=== PATIENT | female | born 1940 | race Caucasian/White ===

== ENCOUNTER 2016-08-01 11:58 | Emergency (ER) | payer MEDICARE, OTHER ==
[~2016-08-01 11:58] MED LIST: ALBUTEROL0.63 MG/3 NEB; ALUM-MAG HYDRO360 ML PO; AMARYL2 MG PO; AMBIEN10 M1 PO; AMBIEN5 MG PO; AMINOPHYLLIN200 MG PO; B12,B-12,B 12500 MC1 PO; BREO ELLIPTA 11 EACH IH; BUMETANIDE1 MG PO; BUSPIRONE HCL10 MG PO; BUSPIRONE10 MG PO; CARDIZEM120 MG PO; CELEBREX100 MG PO; CIPRO500 MG PO; CLONAZEPAM0.5 M1 PO; CLONAZEPAM0.5 M2 PO; CLONAZEPAM0.5 MG PO; COLACE100 MG PO; CYCLOBENZAPRINE5 M3 PO; DIABETIC T100 MG/51 PO; DOXYCYCLINE HY100 M5 PO; DOXYCYCLINE100 M3 PO; DULCOLAX10 M1 R; DULCOLAX10 MG R; DULE1ARO INH; DULER200 INH; Diabeta,Micron2.5 MG PO; FLEXERIL5 MG PO; GOOD NEIGHBOR150 M1 PO; GOOD NEIGHBOR650 MG PO; HUMALOG100 U/ML SC; HYDROCODONE BIT1 T11 PO; KEPPRA500 MG PO; KLONOPIN0.5 MG PO; KLOR-CON M2020 ME1 PO; KLOR-CON M2020 MEQ PO; LANTUS100 U/ML SC; LEXAPRO10 MG PO; LIPITOR20 MG PO; LIPITOR40 MG PO; LISINOPRIL2.5 MG PO; METFORMIN HYD1000 MG PO; METFORMIN1000 MG PO; MILK OF MA400 MG/5 M PO; MOBIC15 MG PO; MOM30 ML PO; NORCO 325 MG-51 TAB PO; NOVOLOG100 U/ML SC; OMEPRAZOLE MAGN20 MG PO; PERCOCET 325 MG1 TA5 PO; PROAIR HFA0.09 MG/AC INH; Percocet 325 MG1 TAB PO; REQUIP2 M2 PO; ROPINIROLE HY0.25 MG PO; ULTRAM50 MG PO; VIBRAMYCIN100 MG PO; VICO10300 PO; VITAMIN B12-FO1 EACH PO; VITAMIN D1000 IU PO; XARE15TA PO; XARELTO20 M1 PO; ZESTRIL2.5 MG PO; ZOLPIDEM TARTRAT5 MG PO; Zaroxolyn,Diul2.5 MG PO; Zestril,Prinivi40 MG PO; [UNRECOGNIZED DRUG - OTHER] T
[2016-08-01 12:24] LABS: BASO % 0.3 % (0.0-1.0); EOS % 0.2 % (1.0-4.0); HEMOGLOBIN 11.1 g/dl (12.0-16.0); IG # 0.1 10*3/uL (0.0-0.1); LYMPH # 1.2 10*3/uL (1.3-4.4); LYMPH % 19.2 % (27.0-41.0); MEAN CELL VOLUME 90.4 fl (81.0-99.0); MEAN CORPUSCULAR HGB 28.7 pg (27.0-31.0); MEAN CORPUSCULAR HGB CONC 31.7 g/dl (33.0-37.0); MEAN PLATELET VOLUME 9.2 fl (9.6-12.3); MONO # 0.3 10*3/uL (0.1-1.0); MONO % 4.6 % (3.0-9.0); NEUT # 4.5 10*3/uL (2.3-7.9); NEUT % 73.6 % (47.0-73.0); NUCLEATED RED BLOOD CELL 0.5 % (0.0-0.0); PLATELET COUNT AUTOMATED 274 10*3/uL (130-400); RED BLOOD COUNT 3.87 10*6/uL (4.10-5.10); RED CELL DISTRI WIDTH 18.9 % (0-14.5); WHITE BLOOD COUNT 6.1 10*3/uL (4.8-10.8)
[2016-08-01 12:33] LABS: INTERNATIONAL NORM RATIO 1.2 (2.0-3.5); PROTHROMBIN TIME 12.5 SECONDS (9.0-12.4)
[2016-08-01 12:41] LABS: ALBUMIN 2.7 gm/dl (3.1-4.5); BUN 19 mg/dl (7-24); C-REACTIVE PROTEIN 1.28 MG/DL (0-0.3); CARBON DIOXIDE 28 mmol/L (21-32); CHLORIDE 99 mmol/L (98-107); EST GLOM FILT AFRICAN AMERICAN > 60 ml/min; GLUCOSE 177 mg/dL (65-99); MAGNESIUM 1.7 mg/dL (1.5-2.1); POTASSIUM 4.1 mmol/L (3.5-5.1); SGOT/AST 15 IU/L (3-35); SGPT/ALT 39 U/L (12-78); SODIUM 140 mmol/L (136-145)
[2016-08-01 12:43] LABS: ALKALINE PHOSPHATASE 58 U/L (45-117); BILIRUBIN, TOTAL 0.6 mg/dl (0.2-1.0); CKMB 1.8 ng/ml (0.5-3.6); CPK 41 U/L (26-192); TOTAL PROTEIN 6.4 gm/dL (6.4-8.2)
[2016-08-01 12:44] LABS: TROPONIN I < 0.015 ng/ml (<0.045)
[2016-08-01 14:21] LABS: LA>2 REFLEX 2 HR DRAW NOW
[2016-08-01 14:38] LABS: LA>2 RFLX FOLLOW UP AT 2 HRS 3.4 mmol/L (0.4-2.0)
[2016-08-01] MEDS ORDERED: DELTASONE20 M1 PO (15:07)
[2016-08-01] MEDS ORDERED: PREDNISONE10 MG PO (15:12)
[2016-08-01] MEDS ORDERED: LEVEMIR10 ML SC (15:13)
[2016-08-01] MEDS ORDERED: PANTOPRAZOLE SO40 MG PO (15:13)
[2016-08-01] MEDS ORDERED: JANUVIA100 MG PO (15:15)
[2016-08-01] MEDS ORDERED: XARELTO15 M1 PO (15:15)
[2016-08-01] MEDS ORDERED: PRAVACHOL80 M1 GT (15:15)
[2016-08-01] MEDS ORDERED: BUSPIRONE HCL10 MG PO (15:16)
[2016-08-01] MEDS ORDERED: TOPROL XL25 MG PO (15:16)
[2016-08-01] MEDS ORDERED: COLACE100 MG PO (15:17)
[2016-08-01] MEDS ORDERED: CARDIZEM120 MG PO (15:17)
[2016-08-01] MEDS ORDERED: LASIX40 MG PO (15:20)
[2016-08-01] MEDS ORDERED: METFORMIN1000 MG PO (15:20)
[2016-08-01] MEDS ORDERED: KLONOPIN0.5 MG PO (15:20)
[2016-08-01] MEDS ORDERED: PULMICORT RESP0.5 MG INH (15:28)
[2016-08-01] MEDS ORDERED: DUONEB 3 MG/3 ML3 M1 INH (15:29)
[2016-08-01] MEDS ORDERED: KLOR-CON M2020 ME1 PO (15:29)
[2016-08-01] MEDS ORDERED: TYLENOL325 M1 PO (15:30)
[2016-08-01] MEDS ORDERED: HYDROCODONE BIT1 T11 PO (15:30)
[2016-08-01 16:28] LABS: LA>2 REFLEX 4 HR DRAW NOW
[2016-08-01] MEDS ORDERED: PEPCID20 MG PO (17:25)
[2016-08-02] MEDS ORDERED: NITROSTAT0.4 MG SL (15:01)
[2016-08-02] MEDS ORDERED: HUMALOG100 U/ML SC (15:03)
== END 2016-08-01 17:28 | disposition home or self-care (01) ==
LOC: ED 11:58
PROVIDERS: Emergency Medicine
DX: K29.00 Acute gastritis without bleeding (principal); I48.91 Unspecified atrial fibrillation; J96.10 Chronic respiratory failure, unspecified whether with hypoxia or hypercapnia; J44.9 Chronic obstructive pulmonary disease, unspecified; I50.9 Heart failure, unspecified; K21.9 Gastro-esophageal reflux disease without esophagitis; E11.65 Type 2 diabetes mellitus with hyperglycemia; G25.81 Restless legs syndrome; G47.00 Insomnia, unspecified; E66.01 Morbid (severe) obesity due to excess calories; Z68.43 Body mass index [BMI] 50.0-59.9, adult; Z99.81 Dependence on supplemental oxygen; Z79.899 Other long term (current) drug therapy; Z86.718 Personal history of other venous thrombosis and embolism; Z79.4 Long term (current) use of insulin

== ENCOUNTER 2016-08-02 09:53 | Inpatient (IN) | payer MEDICARE, OTHER ==
[~2016-08-02] VITALS: Ht 152.4 cm; Wt 99.0 kg
--- NOTE | ~2016-08-02 | DS ---
[place], [place] DISCHARGE SUMMARY NAME: JOSE RAFAEL MARK [facility] #: [id number] UNIT #: [id number] ROOM: 531 DOCTOR: HUONG MACHADO MD BIRTHDATE: [birth year] DOS: 08/05/2016 DISCHARGE DIAGNOSES: 1. The patient refusing further testing or treatment and her daughter, the power of insurance defense attorneyAna is insisting on patient should be sent back to [facility] for treatment. 2. Chronic atrial fibrillation with recurrent tachycardia. 3. Acute over chronic respiratory failure with chronic diastolic type congestive heart failure and hypoxemia. 4. Exacerbation of chronic obstructive pulmonary disease, improved with treatment. 5. Type 2 diabetes mellitus, uncontrolled. 6. Benign essential hypertension with controlled blood pressures. 7. Generalized anxiety disorder, previous history of deep vein thrombosis involving the left leg and pulmonary embolism. 8. Adult advance failure to thrive and poor long-term prognosis. The patient remains bedbound. 9. Major depression, recurrent. 10. Chronic primary insomnia. 11. Chronic respiratory failure and oxygen dependence. The patient overall in poor health, morbidly obese, completely disabled and bedridden stays at [facility], presented to [facility] in acute respiratory failure with episode of hypoxemia. The patient's respiratory failure is chronic and multifactorial including obesity, generalized weakness and weak respiratory muscles along with underlying chronic obstructive pulmonary disease and chronic congestive heart failure. The patient was evaluated by product development carpenter as well as Dr. Clements, the extracorporeal circulation specialist and apparently now she has started refusing testing ordered by Dr. Clements including CT of the chest and further blood work. The patient's daughter who was the power of insurance defense attorney Ana has been calling nursing staff at the hospital to get a release back to the [facility] on SULY basis. The patient appears to be stable, but in generally very weak and generally poor health condition. I am recommending a DNR comfort care code status for her, but she remains a DNR arrest code status which does not appear to be appropriate for her. The patient and her daughter wanted her to be kept comfortable only. 12. Chronic atrial fibrillation with recurrent tachycardia, which is controlled with Cardizem. The dose of Cardizem cannot be increased because she develops hypotension off and on. 13. Type 2 diabetes mellitus, uncontrolled with blood sugars ranging between 200-300 range. I did adjust her insulin and blood sugars appeared to be improved during her stay at the hospital. DIAGNOSES: 1. Benign essential hypertension with controlled blood pressures. 2. Generalized anxiety disorder, controlled with BuSpar and lorazepam. 3. Chronic congestive heart failure with diastolic dysfunction, compensated. The patient is chronically on oxygen for chronic hypoxemia. 4. Left buttock stage 2 decubitus treated with TheraHoney. 5. Chronic constipation, controlled with Colace. [place], [place] DISCHARGE SUMMARY NAME: JOSE RAFAEL MARK [facility] #: [id number] UNIT #: [id number] ROOM: 531 DOCTOR: JEANNETTE DELGADO,HUONG Calderon BIRTHDATE: [birth year] LABORATORY DATA: Normal serum electrolytes, hemoglobin of 10. Otherwise, normal CBC and normal platelets. Chest x-ray results as mentioned above. DISCHARGE MANAGEMENT: Levemir insulin 25 units subq daily. No concentrated sweet diet. Furosemide 40 mg b.i.d. Check basic metabolic profile in one week. Tradjenta 5 mg daily, Xarelto 15 mg daily, metoprolol 25 mg b.i.d., metformin 1000 mg b.i.d., Protonix 40 mg a day, simvastatin 80 mg a day, Colace 200 mg at bedtime, diltiazem 120 mg b.i.d., sublingual nitroglycerin 0.4 mg every 5 minutes x 3 p.r.n. for chest pains, potassium chloride 20 mEq t.i.d., DuoNeb every 4 hours during the day, clonazepam 0.5 mg b.i.d. and buspirone 10 mg b.i.d. I will get a clearance from Dr. Clements in the Cardiology before discharging her back to the residential. HUONG MACHADO MD CM:DISCHARG [id number] HUONG MACHADO MD 08/05/16 2006 interface
--- NOTE | ~2016-08-02 | CON ---
[place], [place] REPORT OF CONSULTATION NAME: JOSE RAFAEL MARK [facility] #: [id number] UNIT #: [id number] ROOM: 531 DOCTOR: ALEIDA PEARCE MD BIRTHDATE: [birth year] DOS: 08/03/2016 PULMONARY CONSULTATION EVALUATION AND MANAGEMENT CONSULTATION REQUESTED BY: Hospitalist services. REASON FOR CONSULTATION: Assess the patient for symptoms of ongoing acute exacerbation of chronic obstructive pulmonary disease and others. HISTORY OF PRESENT ILLNESS: A 76 years old white female patient presented to the Emergency Room and hospitalized the patient on 08/02/2016. The patient reported symptoms of having increased shortness of breath for the patient which has been occurring at home for the patient with significant change in mental status intermittently. The patient was also noted with oxygen desaturation patient with the 70s-80s on 4 L nasal cannula oxygen supplementation. The patient brought to the hospital for the patient for further assessment. She has been assessed in the Emergency Room and hospitalized for further medical management of the current problem for the patient for the acute exacerbation of COPD and hypoxia and respiratory failure. The patient has been noted with reduction in symptoms of shortness breath for this morning. The patient stated that she has been noted with coughing, but there was no sputum expectoration. She does have symptoms of mild wheezing as well. Denies symptoms of chest pain or any abdominal pain or hemoptysis. The patient noted somewhat poor historian, unable to give me all the history accurately. Remaining history has been collected for this patient per review of the documentation of the physician records, Emergency Room notes and the nursing assessment. REVIEW OF SYSTEMS: Of the patient limited. CONSTITUTIONAL: The patient does complain of fatigue and tiredness. Denies symptoms of fever or chills. EYES: Denies any burning, redness, or tenderness. EARS, NOSE, THROAT SYMPTOMS: No sore throat, hoarseness, or otalgia, postnasal drainage. CARDIOVASCULAR SYSTEM: Denies anginal pain, edema or pain of the lower extremities. GASTROINTESTINAL SYMPTOMS: Denies dysphagia, nausea, vomiting, diarrhea, abdominal pain, hematemesis, melena, or hematochezia. SKIN: Denies any lesions or rashes. CENTRAL NERVOUS SYSTEM: Generalized weakness and fatigue was noted. The patient stated that she has been ambulating at home. Currently, noted with overall fatigue and weakness. SKIN: Denies lesions or rashes. Remaining systems limited review of the patient, they were noted all negative. PAST MEDICAL HISTORY: The patient was known with history of: 1. Centrilobular emphysema. 2. Bronchial asthma, longstanding. 3. History of type 2 diabetes mellitus. 4. Generalized anxiety disorder and depression. [place], [place] REPORT OF CONSULTATION NAME: JOSE RAFAEL MARK UNIT #: [id number] ROOM: 531 DOCTOR: LINDA ROMANO MD,[facility] BIRTHDATE: [birth year] 5. Osteoarthritis. 6. Hypercholesterolemia. 7. Gastroesophageal reflux. 8. Atrial fibrillation. 9. Past history of subdural hematoma. 10. Obstructive sleep apnea disorder, on CPAP. 11. Congestive heart failure for this patient was also known for this patient from the past with diastolic dysfunction, most likely. SOCIAL HISTORY: The patient stated that she lives at home. Denies any tobacco use. Denies any history of alcohol or any illicit drug use. The patient stated that she is not and does not have any children. PAST SURGICAL HISTORY: For the patient was reported as no described surgeries. FAMILY HISTORY: Unknown by the patient. MEDICATIONS: The medications, which has been listed in medication reconciliation by the nursing staff for the patient upon admission on 08/02/2016, patient was reported as use of pravastatin, Pulmicort Respules, DuoNeb, Tylenol, BuSpar, Klonopin, Cardizem, Colace, Lasix, Vicodin, metformin, metoprolol tartrate, Protonix, potassium chloride, Levemir insulin, Januvia, Xarelto, prednisone 10 mg daily, sliding scale insulin, and the nitroglycerin sublingual p.r.n. DRUG ALLERGIES: Noted for no known drug allergies. PHYSICAL EXAMINATION: GENERAL: This is a 76 years old female who has been noted currently awake and alert without any distress. Height of 5 feet, weight of 101 kg, BMI of 43.6. VITAL SIGNS: For the patient which has been recorded showed the temperature of the patient recorded as normal, respiratory rate 20-24, heart rate of 88-104, blood pressure 108/77-116/60. The pulse oxygen saturation for the patient recorded this morning on 4 liters nasal cannula 96% saturation. Intake was recorded at 240 mL, output were not documented since admission. HEENT: Examination shows chronic obesity. Head was atraumatic. Eyes: Nonicterus. NECK: Supple. Neck was short and obese. Decreased posterior pharyngeal space, high tongue ____ crowding, soft tissue structures. CARDIOVASCULAR SYSTEM: S1, S2 is audible. LUNGS: The patient was noted with moderate decreased breath sounds noted in the lungs bilaterally. Occasional crackles and wheezing were present. ABDOMEN: Soft, obese, nontender. Bowel sounds present. CENTRAL NERVOUS SYSTEM: Of the patient at this time noted generalized weakness however ____ following vocal commands appropriately at this time with the current medical status. SKIN: Visible skin does not show any lesions or rashes. MUSCULOSKELETAL SYMPTOMS: Does not show any acute deformities. LABORATORY DATA: CBC of the patient that was done for this patient 08/01/2016 [place], [place] REPORT OF CONSULTATION NAME: JOSE RAFAEL MARK UNIT #: [id number] ROOM: 531 DOCTOR: LINDA ROMANO MD,[facility] BIRTHDATE: [birth year] for the patient shows a WBC count was normal, hemoglobin 11.1, hematocrit 35.0, platelet count 274,000. Lactic acid of the patient was noted at 3.8 at that time. Lactic acid of the patient has been noted elevated, the lowest lactic acid noted of the patient after 24 hours 2.4. The CBC of the patient that was done on 08/02/2016 for the patient, WBC count 7.5, hemoglobin 11.3, hematocrit 36.4, platelet count was normal. PT/PTT of the patient 08/02/2016 was normal. CMP of the patient on 08/02/2016 for patient, glucose 231, BUN 20, creatinine 1.03, albumin 2.7. BMP of the patient this morning, glucose 335, BUN 29, creatinine was normal. Carbon dioxide 33, chloride of 97. Blood culture from the 2nd of this month shows no bacterial growth. Chest x-ray of the patient, which has been done for this patient were reviewed for this patient. The first chest x-ray of the patient was done for this patient on 08/01/2016 for the patient shows significant cardiomegaly for this patient was noted, difficult to assess the underlying lung ____ with currently limited chest. Chest x-ray repeated again of the patient yesterday shows similar finding with pulmonary venous congestion of the patient was noted at this time with partial improvement in the aeration noted in the left lower lung. IMPRESSION: 1. The patient who has been noted with recurrent acute respiratory failure whether there is hypercapnia or not at this time was unknown. 2. Left basilar area of atelectasis, rule out acute pneumonia as well. 3. Cardiomegaly. 4. Superimposed congestive heart failure would be considered. 5. History of chronic hypoxic respiratory failure by history as well. 6. Type 2 diabetes mellitus, history of atrial fibrillation and multiple other medical illnesses. 7. History of obstructive sleep apnea disorder as well. PLAN OF TREATMENT: Order the arterial blood gases for the patient assessment of the underlying respiratory status. The patient has been ordered empirical use of the BiPAP for the patient last night with the setting of 14/10 for this patient to be used. The adjustment of the setting could be done based on the available culture results. The PA and lateral chest x-ray for the patient will be needed for the patient to more accurately assess the left lower lobe for this patient as well with the lateral view. Sputum for Gram stain, culture of the patient could be done if the patient able to expectorate any sputum. Current empirical use of the antibiotics for the patient to be discontinued if the culture results will be noted negative since the diagnosis of pneumonia is considered with current assessment very low. Mostly atelectasis would be considered. Other supportive plan of management as well. Usual treatment. Bronchodilators administration. The patient is already getting Xarelto for the chronic anticoagulation that would also help in the DVT prophylaxis, there will be no need of steroids. Diuretic for this patient therapy will be continued for this patient with monitoring of the BUN and creatinine for this patient. Further treatment changes will be done based on the progression of the illness. Thanks for allowing me to participate in the care of this patient. [place], [place] REPORT OF CONSULTATION [facility]: [id number] UNIT #: [id number] ROOM: 531 DOCTOR: ALEIDA PEARCE MD BIRTHDATE: [birth year] ALEIDA MCKEON MD CM:CONSTR:REPORT OF CONSULTATION 1248 08/04/16 0133 interface
--- NOTE | ~2016-08-02 | WRIGHTHP ---
[place], [place] PATIENT HISTORY AND PHYSICAL EXAM NAME: JOSE RAFAEL MARK [facility] #: [id number] UNIT #: [id number] ROOM: 531 DOCTOR: HUONG MACHADO MD BIRTHDATE: [birth year] DOS: 08/03/2016 HISTORY OF PRESENT ILLNESS: The patient is a 76-year-old female with a past medical history of, 1. Chronic atrial fibrillation. 2. History of pulmonary embolism and DVT involving left lower extremity. 3. Morbid obesity. 4. Adult failure to thrive and disability. The patient remains in bed at home. 5. History of benign essential hypertension. 6. GERD and esophagitis. 7. Type 2 diabetes mellitus. 8. COPD. 9. Diastolic type CHF, chronic. 10. Major depression, recurrent. 11. Chronic primary insomnia. 12. Chronic respiratory failure with oxygen dependence. The patient presented to the Emergency Department at [facility] with increased shortness of breath and she was found to be in acute respiratory failure with hypoxemia. The patient was having difficulty with breathing and had decreased consciousness at home. The patient's pulse ox had dropped into 70s on 4 L of oxygen by nasal cannula she was started on in the Emergency Department. The patient was given treatment and then admitted for further management. After admission, the patient says she is feeling much better. She is not short of breath anymore. The patient says she lives at home with help of friends and generally stays in the bed, no complaints. No chest pain. No fainting episodes. No other GI or urinary symptoms. No known drug allergies. FAMILY HISTORY: Noncontributory. HOME MEDICATIONS: Insulin, Xarelto, metoprolol, metformin, Protonix, Lasix, simvastatin, Colace, diltiazem, clonazepam, DuoNebs, buspirone, Vicodin. ALLERGIES: No known drug allergies. PHYSICAL EXAMINATION: GENERAL: The patient is alert and oriented x 3, morbidly obese with generalized disability, bedridden, in no visible distress, advanced disability and generalized weakness. VITAL SIGNS: Blood pressure 145/62, heart rate 59 beats per minute, breathing 18 per minute, temperature 98 degrees Fahrenheit. HEENT AND NECK: Extraocular movements are intact. Sclerae are anicteric. Oral mucosa is moist and clean. No obvious facial weakness. Neck is supple without any lymphadenopathy. No thyromegaly. No JVD. No carotid arterial bruits. LUNGS: Clear to auscultation. No wheezing. No rhonchi. CARDIOVASCULAR SYSTEM: Heart rate is regular in rate and rhythm. S1 and S2 normally audible. No significant murmur or any other abnormal cardiac sounds. ABDOMEN: Soft, nontender. No obvious organomegaly. Bowel sounds are present. No obvious herniation. [place], [place] PATIENT HISTORY AND PHYSICAL EXAM NAME: JOSE RAFAEL MARK [facility] #: [id number] UNIT #: [id number] ROOM: 531 DOCTOR: JEANNETTE DELGADO,HUONG Calderon BIRTHDATE: [birth year] EXTREMITIES: The patient has a stage 2 decubitus on her sacral area. CENTRAL NERVOUS SYSTEM: Alert and oriented x 3. Cranial nerves II-XII are intact. Speech is normal. The patient is able to move all extremities. Normal muscle strength. Deep tendon reflexes are equal on both sides. Plantars were downgoing. LABORATORY DATA: Blood cultures negative. Normal serum electrolytes. Hemoglobin 10. ProBNP of 524, hemoglobin 11.3. IMPRESSION: 1. Acute over chronic respiratory failure with exacerbation of chronic obstructive pulmonary disease and hypoxemia, improved with oxygen and nebulizer treatments. I also keep her on incentive spirometry and follow her closely and keep her on DuoNeb and continue her home medications. 2. Mixed hyperlipidemia. The patient continued on simvastatin. 3. Type 2 diabetes mellitus. We will keep no concentrated sweet diet and treat her with insulin and metformin. 4. History of deep venous thrombosis and pulmonary embolism treated with Xarelto. 5. Chronic constipation, treated and controlled with Colace. 6. Benign essential hypertension with controlled blood pressures. The patient continued on diltiazem. 7. Generalized anxiety disorder. The patient on buspirone. 8. Generalized weakness and failure to thrive. The patient has a stage 2 decubitus over the sacrum, which will be treated appropriately. HUONG MACHADO MD CM:HISPHYS:PATIENT HISTORY AND PHYSICAL EXAMINATION 24 22 HUONG MACHADO MD 08/03/161922 interface
--- NOTE | ~2016-08-02 | PR ---
[place], [place] PROGRESS NOTE NAME: JOSE RAFAEL MARK UNIT #: [id number] ROOM: 531 DOCTOR: ALEIDA PEARCE MD BIRTHDATE: [birth year] DOS: 08/04/2016 SUBJECTIVE: She has been noted much better for this patient at this time. The arterial blood gas was done yesterday. She was started on the BiPAP, which has been tolerated. The patient has been ordered arterial blood gases for this patient that was refused by the patient as well as the chest x-ray was ordered for this patient that was refused by the patient as well. OBJECTIVE: VITAL SIGNS: The patient which has been recorded showed the temperature noted normal, respiratory rate of 18, heart rate of 102, blood pressure 110/80. Pulse oxygen saturation of the patient on 4 liters nasal cannula 96% saturation recorded. HEENT: Shows chronic obesity. NECK: Supple. CARDIOVASCULAR SYSTEM: S1, S2 is audible. LUNGS: The patient was noted with mild decreased breath sounds noted in the lungs bilaterally. ABDOMEN: Soft, obese. EXTREMITIES: Shows chronic obesity as well. LABORATORY DATA: Blood culture, which was taken on the 2nd of this month, shows no bacterial growth. IMPRESSION: 1. The patient who has been currently noted with acute hypoxic respiratory failure with possibility to hypercarbia cannot be excluded. 2. Left lower lobe atelectasis, rule out acute pneumonia. 3. Cardiomegaly. 4. Superimposed congestive heart failure, most likely diastolic dysfunction as well. 5. History of type 2 diabetes mellitus. 6. Chronic hypoxic respiratory failure. 7. Obstructive sleep apnea disorder. PLAN OF TREATMENT: Continue use of the BiPAP for this patient as recommended. The patient is agreeable at this time for the chest x-ray the patient that has been ordered the patient to be done today. In the meantime, continue current plan of management and monitor the lab patient closely. Other supportive therapy, plan of management, other care. [place], [place] PROGRESS NOTE NAME: JOSE RAFAEL MARK UNIT #: [id number] ROOM: 531 DOCTOR: ALEIDA PEARCE MD BIRTHDATE: [birth year] ALEIDA MCKEON MD CM:PNDIVYA [id number] ALEIDA ROMANO MD 08/05/16 0657 interface
--- NOTE | ~2016-08-02 | PR ---
[place], [place] PROGRESS NOTE NAME: JOSE RAFAEL MARK [facility] #: [id number] UNIT #: [id number] ROOM: 531 DOCTOR: HUONG MACHADO MD BIRTHDATE: [birth year] DOS: 08/04/2016 SUBJECTIVE: The patient's breathing is improving. She wants to sit up in the chair today. OBJECTIVE: VITAL SIGNS: Blood pressure 110/80, heart rate of 102 beats per minute, breathing 18 times per minute, afebrile. GENERAL APPEARANCE: Generalized weakness, disability and morbid obesity. HEENT AND NECK: Exam within normal limits. CARDIOVASCULAR SYSTEM: Heart rate is regular in rate and rhythm. S1 and S2 normally audible. LUNGS: Slightly decreased breath sounds on lung auscultation. ABDOMEN: Soft, nontender. No obvious organomegaly. Bowel sounds are present. EXTREMITIES: Without significant cyanosis or edema. IMPRESSION: 1. The patient with acute over chronic respiratory failure. 2. The patient's chronic obstructive pulmonary disease continues to improve with treatment. 3. Morbid obesity, advanced disability. We are taking bedsore precautions, turning her every 2 hours, using an air mattress and also taking fall precautions. The patient working with physical therapy. 4. Type 2 diabetes mellitus. The patient is on a no concentrated sweet diet and her blood sugars are elevated, ranging between 200-300. I will increase her Levemir insulin and monitor her sugars 4 times a day. 5. Chronic atrial fibrillation with reasonably controlled heart rates. 6. Benign essential hypertension with controlled blood pressures with metoprolol and diltiazem. 7. Generalized anxiety disorder, controlled with BuSpar and p.r.n. lorazepam. 8. Diastolic type congestive heart failure which is chronic and compensated. HUONG MACHADO MD CM:PNTRANS [id number] HUONG MACHADO MD 08/04/162108 interface
--- NOTE | ~2016-08-02 | PR ---
[place], [place] PROGRESS NOTE NAME: JOSE RAFAEL [facility] #: [id number] UNIT #: [id number] ROOM: 531 DOCTOR: LINDA ROMANO MD,ALEIDA BIRTHDATE: [birth year] DOS: 08/05/2016 PULMONARY PROGRESS NOTE SUBJECTIVE: The patient continued to be treated with the BiPAP with the patient on oxygen supplementation and others refusing certain treatment for this patient and assessment. The patient has been ordered a chest x-ray, PA and lateral view. She refused to get it done. The portable chest x-ray was performed. She denies symptoms of abdominal pain. She does have mild coughing without any sputum expectoration. OBJECTIVE: VITAL SIGNS: Shows temperature 99.3 degrees Fahrenheit, respiratory rate 18, heart rate 105, blood pressure 124/60-101/59. Intake is 980, the outputs were not documented. Pulse oxygen saturation on 3 liters canula 93% saturation recorded. HEENT: Examination shows head was atraumatic. Eyes nonicterus. NECK: Supple. CARDIOVASCULAR SYSTEM: S1, S2 audible. LUNGS: The patient was noted without any crackles, rhonchi, or wheezing. Decreased breath sounds are noted in the lower portion of the lungs bilaterally. ABDOMEN: Soft, nontender. EXTREMITIES: Shows obesity. LABORATORY DATA AND DIAGNOSTIC STUDIES: The patient's chest x-ray portable today shows retrocardiac infiltration, atelectasis of pleural fluid, the patient with combination the right lung was noted as clear. ____ was somewhat rotated to the left as well. IMPRESSION: 1. The patient with ongoing acute hypoxic respiratory failure of the patient with possible hypercarbia as well. 2. Left lower lobe atelectasis, enlarged left heart border, pneumonia, or pleural fluid all remains a possibility. 3. Refusal of further assessment and management as well. 4. Acute congestive heart failure with most likely diastolic dysfunction. 5. Severe muscle deconditioning and bedbound status and acute type 2 diabetes mellitus. 6. Obstructive sleep apnea disorder. PLAN OF TREATMENT: The refusal of the current assessment and management has been discussed with the patient's daughter by the nursing staff. She does understand the patient's refusal and does not have any other intervention done at this time and continue the current treatment. The patient has been ordered CT scan of the chest without contrast, which will not be performed because of the patient's refusal. She also does not wish to have PA lateral chest x-ray done. Empirical management of the patient's current suspected pneumonia and others will be continued as much as possible. Other usual care, plan of management, and therapies. [place] PROGRESS NOTE NAME: JOSE RAFAEL [facility] #: [id number] UNIT #: [id number] ROOM: 531 DOCTOR: ALEIDA PEARCE MD BIRTHDATE: [birth year] Thanks for allowing me to participate in the care of this patient. ALEIDA MCKEON MD CM:MOIRA [id number] ALEIDA ROMANO MD 08/06/16 0644 interface
[~2016-08-02 09:53] MED LIST changes: +DELTASONE20 M1 PO; +DUONEB 3 MG/3 ML3 M1 INH; +JANUVIA100 MG PO; +LASIX40 MG PO; +LEVEMIR10 ML SC; +PANTOPRAZOLE SO40 MG PO; +PEPCID20 MG PO; +PRAVACHOL80 M1 GT; +PREDNISONE10 MG PO; +PULMICORT RESP0.5 MG INH; +TOPROL XL25 MG PO; +TYLENOL325 M1 PO; +XARELTO15 M1 PO
[2016-08-02 10:15] VITALS: BP 136/79
[2016-08-02 10:26] LABS: BASO % 0.3 % (0.0-1.0); EOS % 0.1 % (1.0-4.0); HEMATOCRIT 36.4 % (37.0-47.0); HEMOGLOBIN 11.3 g/dl (12.0-16.0); IG # 0.2 10*3/uL (0.0-0.1); LYMPH # 1.2 10*3/uL (1.3-4.4); LYMPH % 15.8 % (27.0-41.0); MEAN CELL VOLUME 90.5 fl (81.0-99.0); MEAN CORPUSCULAR HGB 28.1 pg (27.0-31.0); MONO # 0.3 10*3/uL (0.1-1.0); MONO % 4.6 % (3.0-9.0); NEUT # 5.8 10*3/uL (2.3-7.9); NEUT % 77.2 % (47.0-73.0); NUCLEATED RED BLOOD CELL 0.4 % (0.0-0.0); PLATELET COUNT AUTOMATED 282 10*3/uL (130-400); RED BLOOD COUNT 4.02 10*6/uL (4.10-5.10); RED CELL DISTRI WIDTH 19.1 % (0-14.5); WHITE BLOOD COUNT 7.5 10*3/uL (4.8-10.8)
[2016-08-02 10:34] LABS: INTERNATIONAL NORM RATIO 1.1 (2.0-3.5); PROTHROMBIN TIME 11.8 SECONDS (9.0-12.4)
[2016-08-02 10:42] LABS: ALBUMIN 2.7 gm/dl (3.1-4.5); ALKALINE PHOSPHATASE 61 U/L (45-117); BILIRUBIN, TOTAL 0.6 mg/dl (0.2-1.0); BUN 20 mg/dl (7-24); C-REACTIVE PROTEIN 0.95 MG/DL (0-0.3); CARBON DIOXIDE 31 mmol/L (21-32); CHLORIDE 98 mmol/L (98-107); CPK 39 U/L (26-192); EST GLOM FILT AFRICAN AMERICAN > 60 ml/min; GLUCOSE 231 mg/dL (65-99); MAGNESIUM 1.6 mg/dL (1.5-2.1); POTASSIUM 3.8 mmol/L (3.5-5.1); SGOT/AST 12 IU/L (3-35); SGPT/ALT 34 U/L (12-78); SODIUM 139 mmol/L (136-145); TOTAL PROTEIN 6.4 gm/dL (6.4-8.2)
[2016-08-02 10:43] LABS: TROPONIN I < 0.015 ng/ml (<0.045)
[2016-08-02 11:00] VITALS: BP 128/80
[2016-08-02 12:23] LABS: LA>2 REFLEX 2 HR DRAW NOW
[2016-08-02 13:00] VITALS: BP 112/72
[2016-08-02 14:20] VITALS: BP 106/72
[2016-08-02 14:46] LABS: LA>2 REFLEX 4 HR DRAW NOW
[2016-08-02] MEDS ORDERED: NITROSTAT0.4 MG SL (15:01)
[2016-08-02] MEDS ORDERED: HUMALOG100 U/ML SC (15:03)
[2016-08-02 20:00] VITALS: BP 112/66
[2016-08-03] VITALS: BP 118/65
[2016-08-03 06:10] LABS: BASO % 0.2 % (0.0-1.0); HEMATOCRIT 31.8 % (37.0-47.0); IG # 0.2 10*3/uL (0.0-0.1); LYMPH % 17.2 % (27.0-41.0); MEAN CELL VOLUME 89.8 fl (81.0-99.0); MEAN CORPUSCULAR HGB 28.2 pg (27.0-31.0); MEAN CORPUSCULAR HGB CONC 31.4 g/dl (33.0-37.0); MEAN PLATELET VOLUME 9.5 fl (9.6-12.3); MONO # 0.2 10*3/uL (0.1-1.0); MONO % 2.8 % (3.0-9.0); NEUT # 4.4 10*3/uL (2.3-7.9); NEUT % 77.2 % (47.0-73.0); NUCLEATED RED BLOOD CELL 0.5 % (0.0-0.0); PLATELET COUNT AUTOMATED 270 10*3/uL (130-400); RED BLOOD COUNT 3.54 10*6/uL (4.10-5.10); RED CELL DISTRI WIDTH 18.7 % (0-14.5); WHITE BLOOD COUNT 5.7 10*3/uL (4.8-10.8)
[2016-08-03 06:30] LABS: BUN 29 mg/dl (7-24); CARBON DIOXIDE 33 mmol/L (21-32); CHLORIDE 97 mmol/L (98-107); EST GLOM FILT AFRICAN AMERICAN > 60 ml/min; GLUCOSE 335 mg/dL (65-99); POTASSIUM 4.1 mmol/L (3.5-5.1); SODIUM 139 mmol/L (136-145)
[2016-08-03 08:00] VITALS: BP 116/60
[2016-08-03 12:00] VITALS: BP 108/77
[2016-08-03 16:00] VITALS: BP 145/62
[2016-08-03 20:00] VITALS: BP 93/50
[2016-08-03 21:32] VITALS: BP 122/74
[2016-08-04] VITALS: BP 109/64
[2016-08-04 08:00] VITALS: BP 110/80
[2016-08-04 12:00] VITALS: BP 108/64
[2016-08-04 16:00] VITALS: BP 95/57
[2016-08-04 20:00] VITALS: BP 89/65; BP 90/56
[2016-08-05] VITALS: BP 102/58
[2016-08-05 08:00] VITALS: BP 101/59
[2016-08-05 12:00] VITALS: BP 124/60
[2016-08-05 16:00] VITALS: BP 150/81
[2016-08-05 20:00] VITALS: BP 118/59
== END 2016-08-05 20:49 | disposition other institution (70) | DRG 291 ==
LOC: ED 09:53 → EDHOLD 12:12 → 5E 12:12
PROVIDERS: Emergency Medicine; Internal Medicine
DX: I11.0 Hypertensive heart disease with heart failure (principal); J96.21 Acute and chronic respiratory failure with hypoxia; L89.152 Pressure ulcer of sacral region, stage 2; L89.322 Pressure ulcer of left buttock, stage 2; J44.1 Chronic obstructive pulmonary disease with (acute) exacerbation; F33.9 Major depressive disorder, recurrent, unspecified; Z68.42 Body mass index [BMI] 45.0-49.9, adult; I50.33 Acute on chronic diastolic (congestive) heart failure; E11.65 Type 2 diabetes mellitus with hyperglycemia; Z99.81 Dependence on supplemental oxygen; I48.2 Chronic atrial fibrillation; E66.01 Morbid (severe) obesity due to excess calories; K21.9 Gastro-esophageal reflux disease without esophagitis; R62.7 Adult failure to thrive; F41.1 Generalized anxiety disorder; K59.09 Other constipation; E78.5 Hyperlipidemia, unspecified; G47.33 Obstructive sleep apnea (adult) (pediatric); E78.00 Pure hypercholesterolemia, unspecified; M19.90 Unspecified osteoarthritis, unspecified site; J45.909 Unspecified asthma, uncomplicated; Z86.718 Personal history of other venous thrombosis and embolism; Z79.4 Long term (current) use of insulin; Z86.711 Personal history of pulmonary embolism; Z79.84 Long term (current) use of oral hypoglycemic drugs; Z82.3 Family history of stroke; Z79.899 Other long term (current) drug therapy; Z82.49 Family history of ischemic heart disease and other diseases of the circulatory system

== ENCOUNTER 2016-11-02 18:40 | Inpatient (IN) | payer MEDICARE, OTHER ==
[2016-11-02] VITALS (17 sets, daily range): BP systolic 89–156; BP diastolic 24–94
[~2016-11-02] VITALS: Ht 154.9 cm; Wt 102.2 kg
[~2016-11-02 18:40] MED LIST changes: +NITROSTAT0.4 MG SL
[2016-11-02 19:25] LABS: BASO % 0.2 % (0.0-1.0); EOS # 0.1 10*3/uL (0.0-0.4); EOS % 0.4 % (1.0-4.0); HEMATOCRIT 34.9 % (37.0-47.0); IG # 0.1 10*3/uL (0.0-0.1); LYMPH # 2.2 10*3/uL (1.3-4.4); LYMPH % 15.7 % (27.0-41.0); MEAN CELL VOLUME 93.8 fl (81.0-99.0); MEAN CORPUSCULAR HGB 29.6 pg (27.0-31.0); MEAN CORPUSCULAR HGB CONC 31.5 g/dl (33.0-37.0); MEAN PLATELET VOLUME 9.6 fl (9.6-12.3); MONO # 0.9 10*3/uL (0.1-1.0); MONO % 6.5 % (3.0-9.0); NEUT # 10.7 10*3/uL (2.3-7.9); NEUT % 76.6 % (47.0-73.0); NUCLEATED RED BLOOD CELL 0.2 % (0.0-0.0); PLATELET COUNT AUTOMATED 299 10*3/uL (130-400); RED BLOOD COUNT 3.72 10*6/uL (4.10-5.10); RED CELL DISTRI WIDTH 14.4 % (0-14.5)
[2016-11-02 19:27] LABS: ALBUMIN 3.1 gm/dl (3.1-4.5); ALKALINE PHOSPHATASE 49 U/L (45-117); BILIRUBIN, DIRECT < 0.1 mg/dL (0.0-0.2); BILIRUBIN, TOTAL 0.2 mg/dl (0.2-1.0); BUN 12 mg/dl (7-24); CARBON DIOXIDE 26 mmol/L (21-32); CHLORIDE 96 mmol/L (98-107); EST GLOM FILT AFRICAN AMERICAN 54 ml/min; GLUCOSE 259 mg/dL (65-99); MAGNESIUM 1.3 mg/dL (1.5-2.1); POTASSIUM 4.6 mmol/L (3.5-5.1); SGOT/AST 16 IU/L (3-35); SGPT/ALT 18 U/L (12-78); SODIUM 137 mmol/L (136-145); TOTAL PROTEIN 7.5 gm/dL (6.4-8.2)
[2016-11-02 19:29] LABS: TROPONIN I 0.048 ng/ml (<0.045)
[2016-11-02 21:06] LABS: LA>2 REFLEX 2 HR DRAW NOW
[2016-11-02 22:45] LABS: ABG CO2 CONTENT 30.5 mmol/L (23-27); ABG HCO3 28.5 mmol/l (22-26); ABG TEMPERATURE 101.5 F (98.0-99.0); ARTERIAL BLOOD GAS PH 7.238 (7.35-7.45)
[2016-11-02 22:48] LABS: ARTERIAL BLOOD GAS PO2 32.8 mmHg (80-90)
[2016-11-02 23:40] LABS: ABG BASE EXCESS 2.8 mmol/L (-2.0-2.0); ABG CO2 CONTENT 29.7 mmol/L (23-27); ABG HCO3 28.2 mmol/l (22-26); ABG TEMPERATURE 101.5 F (98.0-99.0); ARTERIAL BLOOD GAS PH 7.345 (7.35-7.45)
[2016-11-02 23:58] LABS: BILIRUBIN NEGATIVE (NEGATIVE); BLOOD 2+ (NEGATIVE); CLARITY SL CLOUDY (CLEAR); COLOR YELLOW (YELLOW); GLUCOSE NEGATIVE (NEGATIVE); KETONE TRACE (NEGATIVE); LEUKO ESTERASE NEGATIVE (NEGATIVE); NITRITE NEGATIVE (NEGATIVE); PH 5.5 (5.0-9.0); PROTEIN 2+ (NEGATIVE); SPECIFIC GRAVITY 1.015 (1.005-1.030); UROBILINOGEN 0.2 E.U./dl (0.2-1.0)
[2016-11-03] VITALS: BP 120/60
[2016-11-03 00:21] LABS: URIC ACID CRYSTALS 2+
[2016-11-03 00:22] LABS: WBC 0-2 wbc/hpf (0-5)
[2016-11-03 00:23] LABS: URINE REFLEX COMMENT YES (NO)
[2016-11-03] MEDS ORDERED: BUMEX2.5 MG/10 IV (00:38)
[2016-11-03] MEDS ORDERED: BENZONATATE200 MG PO (00:39)
[2016-11-03] MEDS ORDERED: LEXAPRO20 MG PO (00:40)
[2016-11-03 01:08] LABS: LA>2 REFLEX 4 HR DRAW NOW
[2016-11-03 04:00] VITALS: BP 104/57
[2016-11-03 06:37] LABS: BASO % 0.1 % (0.0-1.0); EOS # 0.1 10*3/uL (0.0-0.4); EOS % 0.7 % (1.0-4.0); IG # 0.1 10*3/uL (0.0-0.1); LYMPH # 1.4 10*3/uL (1.3-4.4); LYMPH % 17.5 % (27.0-41.0); MEAN CELL VOLUME 93.4 fl (81.0-99.0); MEAN CORPUSCULAR HGB 29.4 pg (27.0-31.0); MEAN CORPUSCULAR HGB CONC 31.4 g/dl (33.0-37.0); MEAN PLATELET VOLUME 9.8 fl (9.6-12.3); MONO # 0.6 10*3/uL (0.1-1.0); MONO % 7.2 % (3.0-9.0); NEUT # 5.9 10*3/uL (2.3-7.9); NEUT % 73.9 % (47.0-73.0); PLATELET COUNT AUTOMATED 222 10*3/uL (130-400); RED BLOOD COUNT 3.03 10*6/uL (4.10-5.10); RED CELL DISTRI WIDTH 14.6 % (0-14.5)
[2016-11-03 06:38] LABS: HEMATOCRIT 28.3 % (37.0-47.0); HEMOGLOBIN 8.9 g/dl (12.0-16.0)
[2016-11-03 06:52] LABS: CKMB 0.9 ng/ml (0.5-3.6)
[2016-11-03 06:57] LABS: HEMOGLOBIN A1c 8.6 % (4.8-5.6)
[2016-11-03 07:11] LABS: ALBUMIN 2.3 gm/dl (3.1-4.5); BILIRUBIN, TOTAL 0.3 mg/dl (0.2-1.0); BUN 10 mg/dl (7-24); CARBON DIOXIDE 29 mmol/L (21-32); CHLORIDE 100 mmol/L (98-107); CHOLESTEROL 108 mg/dL (<200); EST GLOM FILT AFRICAN AMERICAN > 60 ml/min; GLUCOSE 231 mg/dL (65-99); HDL CHOLESTEROL 38 mg/dl (40-60); LDL CHOLESTEROL 24 mg/dL (9-159); MAGNESIUM 1.9 mg/dL (1.5-2.1); PHOSPHOROUS 2.5 mg/dL (2.5-4.9); SGOT/AST 8 IU/L (3-35); SGPT/ALT 13 U/L (12-78); TOTAL PROTEIN 5.7 gm/dL (6.4-8.2); TRIGLYCERIDES 232 mg/dl (<150); VLDL CHOLESTEROL 46 mg/dL (6-40)
[2016-11-03 07:18] LABS: ALKALINE PHOSPHATASE 34 U/L (45-117); FREE T4 1.45 ng/dl (0.76-1.46); POTASSIUM 3.4 mmol/L (3.5-5.1); SODIUM 140 mmol/L (136-145); THYROID STIM HORMONE (HS) 0.446 uIU/ml (0.358-4.75)
[2016-11-03 07:19] LABS: VITAMIN D, 25-HYDROXY 19.5 ng/mL (30-100)
[2016-11-03 07:20] LABS: FOLIC ACID 12.39 ng/mL (>5.38)
[2016-11-03 07:39] LABS: PROTHROMBIN TIME 10.7 SECONDS (9.0-12.4)
[2016-11-03 07:44] LABS: ABG BASE EXCESS 3.6 mmol/L (-2.0-2.0); ABG CO2 CONTENT 29.6 mmol/L (23-27); ABG HCO3 28.2 mmol/l (22-26); ABG TEMPERATURE 101.5 F (98.0-99.0); ARTERIAL BLOOD GAS PH 7.384 (7.35-7.45)
[2016-11-03 08:00] VITALS: BP 90/51
[2016-11-03 12:00] VITALS: BP 98/69
[2016-11-03 12:07] LABS: CKMB 1.1 ng/ml (0.5-3.6)
[2016-11-03 16:00] VITALS: BP 98/60
[2016-11-03 20:01] VITALS: BP 114/69
[2016-11-04] VITALS (7 sets, daily range): BP systolic 86–128; BP diastolic 50–87
[2016-11-04 06:18] LABS: BASO % 0.1 % (0.0-1.0); HEMATOCRIT 26.7 % (37.0-47.0); HEMOGLOBIN 8.4 g/dl (12.0-16.0); IG # 0.2 10*3/uL (0.0-0.1); LYMPH # 0.9 10*3/uL (1.3-4.4); LYMPH % 8.5 % (27.0-41.0); MEAN CELL VOLUME 92.4 fl (81.0-99.0); MEAN CORPUSCULAR HGB 29.1 pg (27.0-31.0); MEAN CORPUSCULAR HGB CONC 31.5 g/dl (33.0-37.0); MEAN PLATELET VOLUME 10.1 fl (9.6-12.3); MONO # 0.4 10*3/uL (0.1-1.0); MONO % 3.6 % (3.0-9.0); NEUT # 9.4 10*3/uL (2.3-7.9); NEUT % 86.4 % (47.0-73.0); NUCLEATED RED BLOOD CELL 0.3 % (0.0-0.0); PLATELET COUNT AUTOMATED 234 10*3/uL (130-400); RED BLOOD COUNT 2.89 10*6/uL (4.10-5.10); RED CELL DISTRI WIDTH 14.1 % (0-14.5); WHITE BLOOD COUNT 10.9 10*3/uL (4.8-10.8)
[2016-11-04 06:28] LABS: ALBUMIN 2.3 gm/dl (3.1-4.5); ALKALINE PHOSPHATASE 45 U/L (45-117); BILIRUBIN, TOTAL 0.4 mg/dl (0.2-1.0); BUN 16 mg/dl (7-24); CARBON DIOXIDE 28 mmol/L (21-32); CHLORIDE 99 mmol/L (98-107); EST GLOM FILT AFRICAN AMERICAN > 60 ml/min; GLUCOSE 423 mg/dL (65-99); PHOSPHOROUS 2.7 mg/dL (2.5-4.9); SGOT/AST 12 IU/L (3-35); SGPT/ALT 15 U/L (12-78); SODIUM 138 mmol/L (136-145); TOTAL PROTEIN 5.9 gm/dL (6.4-8.2)
[2016-11-04 06:29] LABS: POTASSIUM 4.4 mmol/L (3.5-5.1)
[2016-11-04 07:52] LABS: ABG BASE EXCESS 3.5 mmol/L (-2.0-2.0); ABG CO2 CONTENT 28.9 mmol/L (23-27); ABG HCO3 27.6 mmol/l (22-26); ABG TEMPERATURE 99.5 F (98.0-99.0); ARTERIAL BLOOD GAS PH 7.427 (7.35-7.45); ARTERIAL BLOOD GAS PO2 82.4 mmHg (80-90)
[2016-11-05] VITALS (12 sets, daily range): BP systolic 100–122; BP diastolic 47–80
[2016-11-05 05:59] LABS: ABG BASE EXCESS 5.1 mmol/L (-2.0-2.0); ABG HCO3 29.6 mmol/l (22-26); ABG TEMPERATURE 99.2 F (98.0-99.0); ARTERIAL BLOOD GAS PH 7.421 (7.35-7.45); ARTERIAL BLOOD GAS PO2 92.7 mmHg (80-90)
[2016-11-05 06:18] LABS: BASO % 0.1 % (0.0-1.0); HEMATOCRIT 28.7 % (37.0-47.0); HEMOGLOBIN 9.1 g/dl (12.0-16.0); IG # 0.2 10*3/uL (0.0-0.1); LYMPH # 1.4 10*3/uL (1.3-4.4); LYMPH % 10.8 % (27.0-41.0); MEAN CORPUSCULAR HGB 29.2 pg (27.0-31.0); MEAN CORPUSCULAR HGB CONC 31.7 g/dl (33.0-37.0); MEAN PLATELET VOLUME 10.2 fl (9.6-12.3); MONO # 0.6 10*3/uL (0.1-1.0); MONO % 4.6 % (3.0-9.0); NEUT # 10.4 10*3/uL (2.3-7.9); NEUT % 82.7 % (47.0-73.0); NUCLEATED RED BLOOD CELL 0.1 10*3/uL (0.0-0.0); NUCLEATED RED BLOOD CELL 0.6 % (0.0-0.0); PLATELET COUNT AUTOMATED 236 10*3/uL (130-400); RED BLOOD COUNT 3.12 10*6/uL (4.10-5.10); WHITE BLOOD COUNT 12.5 10*3/uL (4.8-10.8)
[2016-11-05 06:22] LABS: BUN 25 mg/dl (7-24); CARBON DIOXIDE 29 mmol/L (21-32); CHLORIDE 99 mmol/L (98-107); EST GLOM FILT AFRICAN AMERICAN > 60 ml/min; GLUCOSE 417 mg/dL (65-99); MAGNESIUM 2.4 mg/dL (1.5-2.1); POTASSIUM 4.1 mmol/L (3.5-5.1); PREALBUMIN 16 mg/dl (20-40); SODIUM 139 mmol/L (136-145)
[2016-11-05 13:09] LABS: ORGANISM ID Not indicated. (.); SPECIMEN SOURCE Urine (.); STREPTOCOCCUS PNEUMONIAE AG Negative (Negative)
[2016-11-06] VITALS (10 sets, daily range): BP systolic 96–142; BP diastolic 63–88
[2016-11-06 05:50] LABS: ABG HCO3 33.4 mmol/l (22-26)
[2016-11-06 05:52] LABS: ABG TEMPERATURE 99.9 F (98.0-99.0); ARTERIAL BLOOD GAS PH 7.403 (7.35-7.45); ARTERIAL BLOOD GAS PO2 95.6 mmHg (80-90)
[2016-11-06 06:04] LABS: BUN 31 mg/dl (7-24); CARBON DIOXIDE 31 mmol/L (21-32); CHLORIDE 100 mmol/L (98-107); EST GLOM FILT AFRICAN AMERICAN > 60 ml/min; GLUCOSE 366 mg/dL (65-99); MAGNESIUM 2.5 mg/dL (1.5-2.1); PHOSPHOROUS 3.1 mg/dL (2.5-4.9); POTASSIUM 4.6 mmol/L (3.5-5.1); SODIUM 142 mmol/L (136-145)
[2016-11-06 06:22] LABS: HEMATOCRIT 28.5 % (37.0-47.0); HEMOGLOBIN 9.4 g/dl (12.0-16.0); MEAN CELL VOLUME 92.2 fl (81.0-99.0); MEAN CORPUSCULAR HGB 30.4 pg (27.0-31.0); MEAN PLATELET VOLUME 10.1 fl (9.6-12.3); NUCLEATED RED BLOOD CELL 0.1 10*3/uL (0.0-0.0); NUCLEATED RED BLOOD CELL 1.3 % (0.0-0.0); PLATELET COUNT AUTOMATED 232 10*3/uL (130-400); RED BLOOD COUNT 3.09 10*6/uL (4.10-5.10); RED CELL DISTRI WIDTH 13.7 % (0-14.5); WHITE BLOOD COUNT 10.9 10*3/uL (4.8-10.8)
[2016-11-06 06:58] LABS: LYMPHOCYTE # 2.1 10*3/uL (1.3-4.4); METAMYELOCYTES 1 % (0-0); MONOCYTE # 0.1 10*3/uL (0.1-1.0); MYELOCYTES 3 % (0-0); NEUTROPHIL # 8.3 10*3/uL (2.3-7.9); NEUTROPHILS 76 % (47-73); PLATELET SUFFICIENCY NORMAL (NORMAL); POLYCHROMASIA SLIGHT; TOTAL CELLS COUNTED 100 #CELLS
[2016-11-06 16:09] LABS: ACID FAST SPEC PROCESSING Concentration (.)
[2016-11-06 18:08] LABS: ABG BASE EXCESS 8.7 mmol/L (-2.0-2.0); ABG CO2 CONTENT 34.8 mmol/L (23-27); ABG HCO3 33.3 mmol/l (22-26); ABG TEMPERATURE 98.2 F (98.0-99.0); ARTERIAL BLOOD GAS PH 7.458 (7.35-7.45); ARTERIAL BLOOD GAS PO2 70.8 mmHg (80-90)
[2016-11-07] VITALS (7 sets, daily range): BP systolic 104–125; BP diastolic 59–88
[2016-11-07 05:41] LABS: ALBUMIN 2.1 gm/dl (3.1-4.5); ALKALINE PHOSPHATASE 42 U/L (45-117); BILIRUBIN, TOTAL 0.3 mg/dl (0.2-1.0); BUN 34 mg/dl (7-24); CARBON DIOXIDE 34 mmol/L (21-32); CHLORIDE 101 mmol/L (98-107); EST GLOM FILT AFRICAN AMERICAN > 60 ml/min; GLUCOSE 262 mg/dL (65-99); POTASSIUM 4.5 mmol/L (3.5-5.1); SGOT/AST 10 IU/L (3-35); SGPT/ALT 21 U/L (12-78); SODIUM 143 mmol/L (136-145); TOTAL PROTEIN 5.7 gm/dL (6.4-8.2)
[2016-11-07 06:01] LABS: HEMATOCRIT 28.9 % (37.0-47.0); MEAN CELL VOLUME 93.8 fl (81.0-99.0); MEAN CORPUSCULAR HGB 29.2 pg (27.0-31.0); MEAN CORPUSCULAR HGB CONC 31.1 g/dl (33.0-37.0); MEAN PLATELET VOLUME 10.1 fl (9.6-12.3); NUCLEATED RED BLOOD CELL 0.2 10*3/uL (0.0-0.0); NUCLEATED RED BLOOD CELL 1.7 % (0.0-0.0); PLATELET COUNT AUTOMATED 237 10*3/uL (130-400); RED BLOOD COUNT 3.08 10*6/uL (4.10-5.10); RED CELL DISTRI WIDTH 13.6 % (0-14.5); WHITE BLOOD COUNT 8.9 10*3/uL (4.8-10.8)
[2016-11-07 06:36] LABS: LYMPHOCYTE # 1.2 10*3/uL (1.3-4.4); METAMYELOCYTES 1 % (0-0); MONOCYTE # 0.4 10*3/uL (0.1-1.0); MYELOCYTES 2 % (0-0); NEUTROPHILS 79 % (47-73); PLATELET SUFFICIENCY NORMAL (NORMAL); POLYCHROMASIA SLIGHT; TOTAL CELLS COUNTED 100 #CELLS
[2016-11-08] VITALS: BP 100/69
[2016-11-08 04:00] VITALS: BP 92/74
[2016-11-08 06:31] LABS: HEMOGLOBIN 9.5 g/dl (12.0-16.0); MEAN CELL VOLUME 94.5 fl (81.0-99.0); MEAN CORPUSCULAR HGB CONC 30.6 g/dl (33.0-37.0); MEAN PLATELET VOLUME 9.9 fl (9.6-12.3); NUCLEATED RED BLOOD CELL 0.1 10*3/uL (0.0-0.0); NUCLEATED RED BLOOD CELL 1.5 % (0.0-0.0); PLATELET COUNT AUTOMATED 244 10*3/uL (130-400); RED BLOOD COUNT 3.28 10*6/uL (4.10-5.10); RED CELL DISTRI WIDTH 13.5 % (0-14.5); WHITE BLOOD COUNT 7.8 10*3/uL (4.8-10.8)
[2016-11-08 06:48] LABS: BUN 32 mg/dl (7-24); CARBON DIOXIDE 34 mmol/L (21-32); CHLORIDE 99 mmol/L (98-107); EST GLOM FILT AFRICAN AMERICAN > 60 ml/min; GLUCOSE 223 mg/dL (65-99); MAGNESIUM 2.6 mg/dL (1.5-2.1); PHOSPHOROUS 4.8 mg/dL (2.5-4.9); POTASSIUM 4.5 mmol/L (3.5-5.1); SODIUM 143 mmol/L (136-145)
[2016-11-08 07:11] LABS: LYMPHOCYTE # 1.1 10*3/uL (1.3-4.4); METAMYELOCYTES 2 % (0-0); MONOCYTE # 0.1 10*3/uL (0.1-1.0); MYELOCYTES 4 % (0-0); NEUTROPHIL # 6.2 10*3/uL (2.3-7.9); NEUTROPHILS 79 % (47-73); PLATELET SUFFICIENCY NORMAL (NORMAL); TOTAL CELLS COUNTED 100 #CELLS
[2016-11-08 08:00] VITALS: BP 120/54
[2016-11-08 12:00] VITALS: BP 105/72
[2016-11-08 16:00] VITALS: BP 105/72
[2016-11-08 19:39] VITALS: BP 102/69
[2016-11-09] VITALS: BP 100/61
[2016-11-09 04:05] VITALS: BP 113/53
[2016-11-09 06:00] LABS: HEMATOCRIT 30.2 % (37.0-47.0); HEMOGLOBIN 9.6 g/dl (12.0-16.0); MEAN CELL VOLUME 92.4 fl (81.0-99.0); MEAN CORPUSCULAR HGB 29.4 pg (27.0-31.0); MEAN CORPUSCULAR HGB CONC 31.8 g/dl (33.0-37.0); MEAN PLATELET VOLUME 9.8 fl (9.6-12.3); NUCLEATED RED BLOOD CELL 0.1 10*3/uL (0.0-0.0); NUCLEATED RED BLOOD CELL 1.3 % (0.0-0.0); PLATELET COUNT AUTOMATED 234 10*3/uL (130-400); RED BLOOD COUNT 3.27 10*6/uL (4.10-5.10); RED CELL DISTRI WIDTH 13.7 % (0-14.5); WHITE BLOOD COUNT 8.4 10*3/uL (4.8-10.8)
[2016-11-09 06:15] LABS: CHLORIDE 103 mmol/L (98-107); POTASSIUM 4.1 mmol/L (3.5-5.1); SODIUM 143 mmol/L (136-145)
[2016-11-09 06:28] LABS: BUN 25 mg/dl (7-24); CARBON DIOXIDE 31 mmol/L (21-32); EST GLOM FILT AFRICAN AMERICAN > 60 ml/min; GLUCOSE 129 mg/dL (65-99)
[2016-11-09 07:20] LABS: HYPOCHROMIA SLIGHT; LYMPHOCYTE # 3.4 10*3/uL (1.3-4.4); METAMYELOCYTES 1 % (0-0); MONOCYTE # 0.3 10*3/uL (0.1-1.0); MYELOCYTES 3 % (0-0); NEUTROPHIL # 4.5 10*3/uL (2.3-7.9); NEUTROPHILS 53 % (47-73); PLATELET SUFFICIENCY NORMAL (NORMAL); POLYCHROMASIA SLIGHT; TOTAL CELLS COUNTED 100 #CELLS
[2016-11-09 08:00] VITALS: BP 114/60
[2016-11-09 12:00] VITALS: BP 110/60
[2016-11-09 16:00] VITALS: BP 105/57
[2016-11-09 20:00] VITALS: BP 113/62
[2016-11-10] VITALS (7 sets, daily range): BP systolic 103–116; BP diastolic 60–66
[2016-11-10 05:34] LABS: BUN 21 mg/dl (7-24); CARBON DIOXIDE 34 mmol/L (21-32); CHLORIDE 101 mmol/L (98-107); EST GLOM FILT AFRICAN AMERICAN > 60 ml/min; GLUCOSE 113 mg/dL (65-99); PHOSPHOROUS 3.5 mg/dL (2.5-4.9); SODIUM 141 mmol/L (136-145)
[2016-11-10 05:45] LABS: MAGNESIUM 2.3 mg/dL (1.5-2.1)
[2016-11-10 06:08] LABS: HEMATOCRIT 29.9 % (37.0-47.0); HEMOGLOBIN 9.1 g/dl (12.0-16.0); MEAN CELL VOLUME 94.3 fl (81.0-99.0); MEAN CORPUSCULAR HGB 28.7 pg (27.0-31.0); MEAN CORPUSCULAR HGB CONC 30.4 g/dl (33.0-37.0); MEAN PLATELET VOLUME 9.9 fl (9.6-12.3); NUCLEATED RED BLOOD CELL 0.1 10*3/uL (0.0-0.0); NUCLEATED RED BLOOD CELL 0.6 % (0.0-0.0); PLATELET COUNT AUTOMATED 243 10*3/uL (130-400); RED BLOOD COUNT 3.17 10*6/uL (4.10-5.10); RED CELL DISTRI WIDTH 13.8 % (0-14.5); WHITE BLOOD COUNT 8.7 10*3/uL (4.8-10.8)
[2016-11-10 07:12] LABS: EOSINOPHIL # 0.1 10*3/uL (0-0.4); EOSINOPHILS 1 % (1-4); LYMPHOCYTE # 2.3 10*3/uL (1.3-4.4); METAMYELOCYTES 6 % (0-0); MONOCYTE # 0.2 10*3/uL (0.1-1.0); MYELOCYTES 2 % (0-0); NEUTROPHIL # 5.4 10*3/uL (2.3-7.9); NEUTROPHILS 62 % (47-73); PLATELET SUFFICIENCY NORMAL (NORMAL); TEAR DROP CELLS FEW; TOTAL CELLS COUNTED 100 #CELLS
[2016-11-11 03:40] VITALS: BP 112/73
[2016-11-11 05:47] LABS: HEMATOCRIT 28.2 % (37.0-47.0); HEMOGLOBIN 8.8 g/dl (12.0-16.0); MEAN CELL VOLUME 94.3 fl (81.0-99.0); MEAN CORPUSCULAR HGB 29.4 pg (27.0-31.0); MEAN CORPUSCULAR HGB CONC 31.2 g/dl (33.0-37.0); MEAN PLATELET VOLUME 9.5 fl (9.6-12.3); NUCLEATED RED BLOOD CELL 0.4 % (0.0-0.0); PLATELET COUNT AUTOMATED 244 10*3/uL (130-400); RED BLOOD COUNT 2.99 10*6/uL (4.10-5.10); RED CELL DISTRI WIDTH 13.8 % (0-14.5); WHITE BLOOD COUNT 7.7 10*3/uL (4.8-10.8)
[2016-11-11 06:17] LABS: BUN 14 mg/dl (7-24); CARBON DIOXIDE 34 mmol/L (21-32); CHLORIDE 100 mmol/L (98-107); GLUCOSE 136 mg/dL (65-99); POTASSIUM 3.5 mmol/L (3.5-5.1); SODIUM 143 mmol/L (136-145)
[2016-11-11 06:19] LABS: EST GLOM FILT AFRICAN AMERICAN > 60 ml/min
[2016-11-11 06:36] LABS: EOSINOPHIL # 0.1 10*3/uL (0-0.4); EOSINOPHILS 1 % (1-4); METAMYELOCYTES 3 % (0-0); MONOCYTE # 0.4 10*3/uL (0.1-1.0); MYELOCYTES 1 % (0-0); NEUTROPHIL # 4.9 10*3/uL (2.3-7.9); NEUTROPHILS 64 % (47-73); TOTAL CELLS COUNTED 100 #CELLS
[2016-11-11 06:37] LABS: PLATELET SUFFICIENCY NORMAL (NORMAL); POLYCHROMASIA SLIGHT
[2016-11-11 08:00] VITALS: BP 123/75
[2016-11-11 12:00] VITALS: BP 95/55
[2016-11-11] MEDS ORDERED: DOXYCYCLINE100 M3 PO (12:13)
[2016-11-11] MEDS ORDERED: HYDROCODONE BIT1 T11 PO (12:13)
[2016-11-11] MEDS ORDERED: METOPROLOL TART50 M1 PO (12:13)
[2016-11-11] MEDS ORDERED: KLONOPIN0.5 MG PO (12:13)
[2016-11-11] MEDS ORDERED: PREDNISONE10 MG PO (12:13)
[2016-11-11] MEDS ORDERED: ATORVASTATIN CA20 M1 PO (12:13)
[2016-11-12] MEDS ORDERED: BISACODYL10 MG R (00:45)
[2016-11-12] MEDS ORDERED: HYDROGEL1 GEL T (00:48)
[2016-11-12] MEDS ORDERED: MILK OF MA400 MG/5 M PO (00:50)
[2016-11-12] MEDS ORDERED: LIPITOR20 MG PO (00:53)
[2016-11-12] MEDS ORDERED: READY TO USE E133 ML R (02:44)
[2016-11-12] MEDS ORDERED: KLONOPIN0.5 MG PO (14:05)
[2016-11-12] MEDS ORDERED: HYDROCODONE BIT1 T11 PO (14:05)
== END 2016-11-11 14:48 | disposition other institution (70) | DRG 870 ==
LOC: ED 18:40 → ICCU 20:17 → EDHOLD 20:17 → ICCU 20:30
PROVIDERS: Emergency Medicine; Family Medicine; Hospitalist; Internal Medicine; Internal Medicine Critical Care Medicine; Internal Medicine Nephrology
PROC: 0BH17EZ Insertion of Endotracheal Airway into Trachea, Via Natural or Artificial Opening (ICD-10-PCS; principal; 2016-11-02)
PROC: 5A1955Z Respiratory Ventilation, Greater than 96 Consecutive Hours (ICD-10-PCS; principal; 2016-11-02)
PROC: 0BC48ZZ Extirpation of Matter from Right Upper Lobe Bronchus, Via Natural or Artificial Opening Endoscopic (ICD-10-PCS; 2016-11-05)
PROC: 0BC18ZZ Extirpation of Matter from Trachea, Via Natural or Artificial Opening Endoscopic (ICD-10-PCS; 2016-11-05)
PROC: 0BCB8ZZ Extirpation of Matter from Left Lower Lobe Bronchus, Via Natural or Artificial Opening Endoscopic (ICD-10-PCS; 2016-11-05)
PROC: 0BC88ZZ Extirpation of Matter from Left Upper Lobe Bronchus, Via Natural or Artificial Opening Endoscopic (ICD-10-PCS; 2016-11-05)
PROC: 0BC68ZZ Extirpation of Matter from Right Lower Lobe Bronchus, Via Natural or Artificial Opening Endoscopic (ICD-10-PCS; 2016-11-05)
PROC: 0BC98ZZ Extirpation of Matter from Lingula Bronchus, Via Natural or Artificial Opening Endoscopic (ICD-10-PCS; 2016-11-05)
PROC: 0BC58ZZ Extirpation of Matter from Right Middle Lobe Bronchus, Via Natural or Artificial Opening Endoscopic (ICD-10-PCS; 2016-11-05)
PROC: 5A09457 Assistance with Respiratory Ventilation, 24-96 Consecutive Hours, Continuous Positive Airway Pressure (ICD-10-PCS; 2016-11-07)
DX: A41.9 Sepsis, unspecified organism (principal); J96.21 Acute and chronic respiratory failure with hypoxia; E43 Unspecified severe protein-calorie malnutrition; J18.9 Pneumonia, unspecified organism; E87.2 Acidosis; I50.33 Acute on chronic diastolic (congestive) heart failure; E87.3 Alkalosis; N17.9 Acute kidney failure, unspecified; E87.0 Hyperosmolality and hypernatremia; E11.649 Type 2 diabetes mellitus with hypoglycemia without coma; J96.22 Acute and chronic respiratory failure with hypercapnia; J44.0 Chronic obstructive pulmonary disease with (acute) lower respiratory infection; J44.1 Chronic obstructive pulmonary disease with (acute) exacerbation; Z68.41 Body mass index [BMI] 40.0-44.9, adult; E11.65 Type 2 diabetes mellitus with hyperglycemia; I48.91 Unspecified atrial fibrillation; F32.9 Major depressive disorder, single episode, unspecified; E66.01 Morbid (severe) obesity due to excess calories; K21.9 Gastro-esophageal reflux disease without esophagitis; R65.20 Severe sepsis without septic shock; D64.9 Anemia, unspecified; E83.42 Hypomagnesemia; R31.9 Hematuria, unspecified; R80.9 Proteinuria, unspecified; J20.9 Acute bronchitis, unspecified; T38.0X5A Adverse effect of glucocorticoids and synthetic analogues, initial encounter; E04.2 Nontoxic multinodular goiter; I25.10 Atherosclerotic heart disease of native coronary artery without angina pectoris; E78.5 Hyperlipidemia, unspecified; K59.00 Constipation, unspecified; G47.33 Obstructive sleep apnea (adult) (pediatric); Z79.84 Long term (current) use of oral hypoglycemic drugs; Z79.4 Long term (current) use of insulin; Z86.711 Personal history of pulmonary embolism; Z79.1 Long term (current) use of non-steroidal anti-inflammatories (NSAID); Y92.89 Other specified places as the place of occurrence of the external cause; Z79.899 Other long term (current) drug therapy; Z87.440 Personal history of urinary (tract) infections; Z86.718 Personal history of other venous thrombosis and embolism; Z82.3 Family history of stroke; Z99.81 Dependence on supplemental oxygen; Z82.49 Family history of ischemic heart disease and other diseases of the circulatory system

== ENCOUNTER 2016-11-11 23:13 | Inpatient (IN) | payer MEDICARE, OTHER ==
[~2016-11-11] VITALS: Ht 152.4 cm; Wt 101.9 kg
[2016-11-11 23:13] VITALS: BP 111/76
[~2016-11-11 23:13] MED LIST changes: +ATORVASTATIN CA20 M1 PO; +BENZONATATE200 MG PO; +BUMEX2.5 MG/10 IV; +LEXAPRO20 MG PO; +METOPROLOL TART50 M1 PO
[2016-11-11 23:52] VITALS: BP 122/66
[2016-11-11 23:58] LABS: HEMATOCRIT 30.6 % (37.0-47.0); HEMOGLOBIN 9.8 g/dl (12.0-16.0); MEAN PLATELET VOLUME 10.3 fl (9.6-12.3); NUCLEATED RED BLOOD CELL 0.4 % (0.0-0.0); PLATELET COUNT AUTOMATED 249 10*3/uL (130-400); RED BLOOD COUNT 3.38 10*6/uL (4.10-5.10); RED CELL DISTRI WIDTH 13.9 % (0-14.5); WHITE BLOOD COUNT 9.1 10*3/uL (4.8-10.8)
[2016-11-12 00:11] LABS: MEAN CELL VOLUME 90.5 fl (81.0-99.0)
[2016-11-12 00:15] LABS: EOSINOPHIL # 0.1 10*3/uL (0-0.4); EOSINOPHILS 1 % (1-4); LYMPHOCYTE # 2.9 10*3/uL (1.3-4.4); METAMYELOCYTES 2 % (0-0); MONOCYTE # 0.2 10*3/uL (0.1-1.0); NEUTROPHIL # 5.7 10*3/uL (2.3-7.9); NEUTROPHILS 63 % (47-73); PLATELET SUFFICIENCY NORMAL (NORMAL); TOTAL CELLS COUNTED 100 #CELLS
[2016-11-12 00:16] LABS: POLYCHROMASIA SLIGHT
[2016-11-12 00:17] LABS: ALBUMIN 2.5 gm/dl (3.1-4.5); ALKALINE PHOSPHATASE 44 U/L (45-117); BILIRUBIN, TOTAL 0.2 mg/dl (0.2-1.0); BUN 14 mg/dl (7-24); CARBON DIOXIDE 30 mmol/L (21-32); CHLORIDE 100 mmol/L (98-107); EST GLOM FILT AFRICAN AMERICAN > 60 ml/min; GLUCOSE 309 mg/dL (65-99); POTASSIUM 4.6 mmol/L (3.5-5.1); SGOT/AST 16 IU/L (3-35); SGPT/ALT 27 U/L (12-78); SODIUM 138 mmol/L (136-145); TROPONIN I 0.016 ng/ml (<0.045)
[2016-11-12 00:26] VITALS: BP 114/73
[2016-11-12] MEDS ORDERED: BISACODYL10 MG R (00:45)
[2016-11-12] MEDS ORDERED: HYDROGEL1 GEL T (00:48)
[2016-11-12] MEDS ORDERED: MILK OF MA400 MG/5 M PO (00:50)
[2016-11-12] MEDS ORDERED: LIPITOR20 MG PO (00:53)
[2016-11-12 01:13] VITALS: BP 101/73
[2016-11-12 02:05] VITALS: BP 127/85
[2016-11-12] MEDS ORDERED: READY TO USE E133 ML R (02:44)
[2016-11-12 04:22] LABS: LA>2 REFLEX 2 HR DRAW NOW
[2016-11-12 05:13] LABS: HEMATOCRIT 33.6 % (37.0-47.0); HEMOGLOBIN 10.3 g/dl (12.0-16.0); MEAN CELL VOLUME 94.9 fl (81.0-99.0); MEAN CORPUSCULAR HGB 29.1 pg (27.0-31.0); MEAN CORPUSCULAR HGB CONC 30.7 g/dl (33.0-37.0); MEAN PLATELET VOLUME 9.3 fl (9.6-12.3); PLATELET COUNT AUTOMATED 286 10*3/uL (130-400); RED BLOOD COUNT 3.54 10*6/uL (4.10-5.10); RED CELL DISTRI WIDTH 13.8 % (0-14.5); WHITE BLOOD COUNT 8.1 10*3/uL (4.8-10.8)
[2016-11-12 05:20] LABS: BUN 16 mg/dl (7-24); CARBON DIOXIDE 34 mmol/L (21-32); CHLORIDE 99 mmol/L (98-107); EST GLOM FILT AFRICAN AMERICAN > 60 ml/min; GLUCOSE 308 mg/dL (65-99); MAGNESIUM 2.1 mg/dL (1.5-2.1); PHOSPHOROUS 3.2 mg/dL (2.5-4.9); POTASSIUM 4.2 mmol/L (3.5-5.1); SODIUM 139 mmol/L (136-145)
[2016-11-12 05:26] LABS: LYMPHOCYTE # 1.1 10*3/uL (1.3-4.4); METAMYELOCYTES 1 % (0-0); MONOCYTE # 0.1 10*3/uL (0.1-1.0); MYELOCYTES 1 % (0-0); NEUTROPHIL # 6.8 10*3/uL (2.3-7.9); NEUTROPHILS 84 % (47-73); TOTAL CELLS COUNTED 100 #CELLS
[2016-11-12 05:27] LABS: PLATELET SUFFICIENCY NORMAL (NORMAL)
[2016-11-12 05:28] LABS: POLYCHROMASIA SLIGHT
[2016-11-12 08:00] VITALS: BP 129/75
[2016-11-12 12:00] VITALS: BP 115/63
[2016-11-12] MEDS ORDERED: KLONOPIN0.5 MG PO (14:05)
[2016-11-12] MEDS ORDERED: HYDROCODONE BIT1 T11 PO (14:05)
== END 2016-11-12 17:00 | disposition other institution (70) | DRG 871 ==
LOC: ED 23:13 → ICCU 11-12 01:05
PROVIDERS: Emergency Medicine; Family Medicine
PROC: 5A09357 Assistance with Respiratory Ventilation, Less than 24 Consecutive Hours, Continuous Positive Airway Pressure (ICD-10-PCS; principal; 2016-11-12)
DX: A41.9 Sepsis, unspecified organism (principal); E43 Unspecified severe protein-calorie malnutrition; J18.9 Pneumonia, unspecified organism; J96.10 Chronic respiratory failure, unspecified whether with hypoxia or hypercapnia; J44.0 Chronic obstructive pulmonary disease with (acute) lower respiratory infection; E11.65 Type 2 diabetes mellitus with hyperglycemia; I50.32 Chronic diastolic (congestive) heart failure; Z99.81 Dependence on supplemental oxygen; J45.901 Unspecified asthma with (acute) exacerbation; J44.1 Chronic obstructive pulmonary disease with (acute) exacerbation; Z68.41 Body mass index [BMI] 40.0-44.9, adult; R65.20 Severe sepsis without septic shock; Z88.2 Allergy status to sulfonamides; D64.9 Anemia, unspecified; K21.9 Gastro-esophageal reflux disease without esophagitis; F32.9 Major depressive disorder, single episode, unspecified; G47.00 Insomnia, unspecified; E66.01 Morbid (severe) obesity due to excess calories; E55.9 Vitamin D deficiency, unspecified; E78.5 Hyperlipidemia, unspecified; G25.81 Restless legs syndrome; Z86.711 Personal history of pulmonary embolism; Z86.718 Personal history of other venous thrombosis and embolism; Z87.01 Personal history of pneumonia (recurrent); Z82.49 Family history of ischemic heart disease and other diseases of the circulatory system; Z82.3 Family history of stroke; I48.91 Unspecified atrial fibrillation

== ENCOUNTER 2017-03-05 11:57 | Inpatient (IN) | payer MEDICARE, OTHER, MEDICAID ==
[2017-03-05] VITALS (8 sets, daily range): BP systolic 72–134; BP diastolic 40–66
[~2017-03-05] VITALS: Ht 157.5 cm; Wt 96.3 kg
--- NOTE | ~2017-03-05 | EKG ---
[place], [place] ELECTROCARDIOGRAM REPORT NAME: JOSE RAFAEL MARK UNIT #: [id number] ROOM: 408 DOCTOR: LINDA ROMANO MD,ALEIDA BIRTHDATE: [birth year] DOS: 03/05/2017 The electrocardiogram was done on 03/05/2017 for this patient at 1215 hours p.m. Atrial fibrillation noted with mild left ventricular response with heart rate of 101 beats per minute. Mild prolongation of the QTC interval in the patient was also noted. ALEIDA MCKEON MD CM:EKGRPT:ELECTROCARDIOGRAM REPORT [id number] ALEIDA ROMANO MD
--- NOTE | ~2017-03-05 | CON ---
[place], [place] REPORT OF CONSULTATION NAME[id number] UNIT #: [id number] ROOM: 408 DOCTOR: MADELINE TORRES MD BIRTHDATE: [birth year] DOS: 03/09/2017 CHIEF COMPLAINT: "I want to go home." HISTORY OF PRESENT ILLNESS: This is a 76-year-old white female who presents to the emergency room at [facility] with a complaint of cough and shortness of breath. The patient was found to be very somnolent and had a significant breathing difficulty and subsequently was admitted then with respiratory failure to the medical unit. From a psychiatric standpoint, the patient does seem to have ongoing depression with poor sleep and appetite, energy, anhedonia, hopeless, helpless feelings, crying spells, and inability to cope. She has significant medical issues with chronic respiratory failure, asthma, DVT, diabetes, CHF, GERD, hyperlipidemia, morbid obesity, pulmonary emboli, restless leg syndrome, severe protein calorie malnutrition, subdural hematoma and vitamin D deficiency. MENTAL STATUS: The patient is alert and oriented with significant time gaps. Her responses are short and simple, oftentimes 1 word. She reports that she feels crappy, but could not further elaborate that. She denies pain. There does seem to be overriding depression at this point. There is no tripp or hypomania. There are no psychotic symptoms noted. DIAGNOSIS: Major depression, recurrent, severe. PLAN: I will discontinue her Lexapro due to ineffectiveness. I will also discontinue BuSpar. In rare instances BuSpar can be somewhat like an antipsychotic and cause extrapyramidal symptoms and swallow difficulties. I will start her on Cymbalta 30 mg at bedtime. This will help with depression, anxiety and pain. We will monitor if you need a future consult. Please notify me in the future. MADELINE TORRES MD CM:CONSTR:REPORT OF CONSULTATION 1003 03/09/17 1014 interface
[~2017-03-05 11:57] MED LIST changes: +BISACODYL10 MG R; +HYDROGEL1 GEL T; +READY TO USE E133 ML R
[2017-03-05 12:22] LABS: BASO % 0.2 % (0.0-1.0); EOS # 0.1 10*3/uL (0.0-0.4); EOS % 0.9 % (1.0-4.0); HEMATOCRIT 32.5 % (37.0-47.0); HEMOGLOBIN 9.9 g/dl (12.0-16.0); LYMPH # 2.9 10*3/uL (1.3-4.4); LYMPH % 21.7 % (27.0-41.0); MEAN CELL VOLUME 93.9 fl (81.0-99.0); MEAN CORPUSCULAR HGB 28.6 pg (27.0-31.0); MEAN CORPUSCULAR HGB CONC 30.5 g/dl (33.0-37.0); MEAN PLATELET VOLUME 9.8 fl (9.6-12.3); MONO # 0.9 10*3/uL (0.1-1.0); MONO % 6.7 % (3.0-9.0); NEUT # 9.3 10*3/uL (2.3-7.9); PLATELET COUNT AUTOMATED 328 10*3/uL (130-400); RED BLOOD COUNT 3.46 10*6/uL (4.10-5.10); RED CELL DISTRI WIDTH 14.7 % (0-14.5); WHITE BLOOD COUNT 13.2 10*3/uL (4.8-10.8)
[2017-03-05 12:34] LABS: ALBUMIN 2.7 gm/dl (3.1-4.5); ALKALINE PHOSPHATASE 65 U/L (45-117); BUN 15 mg/dl (7-24); CHLORIDE 96 mmol/L (98-107); CREATININE 1.11 mg/dL (0.55-1.02); POTASSIUM 3.8 mmol/L (3.5-5.1); SGOT/AST 12 IU/L (3-35); SGPT/ALT 11 U/L (12-78); SODIUM 139 mmol/L (136-145); TOTAL PROTEIN 7.4 gm/dL (6.4-8.2)
[2017-03-05 12:36] LABS: TROPONIN I < 0.015 ng/ml (<0.045)
[2017-03-05 12:42] LABS: ACT PARTIAL THROMBO TIME 37.4 SECONDS (20.8-31.5); INTERNATIONAL NORM RATIO 1.3 (2.0-3.5)
--- NOTE | 2017-03-05 13:29 | NUR ---
PATIENT BP DECERASED TO 70/40 MANUALLY. NEIL LYONS AWARE
--- NOTE | 2017-03-05 14:24 | NUR ---
IV VANCOMYCIN AND IV ZOSYN SENT TO FLOOR WITH PATIENT TO BE STARTED BY CALEB VERA RN. IV LEVAQUIN INFUSING ON ADMISSION TO RIGHT WRIST.
--- NOTE | 2017-03-05 14:32 | NUR ---
CRITICAL LAB VALUE CALLED TO DR. LAGOS
--- NOTE | 2017-03-05 14:50 | NUR ---
Time: 1449 A 76 year old FEMALE admitted to 4E under services of KEMAL DEMARCO DO, Pt. arrived via bed from ER. Chief complaint: SOB. CARLO AGRAWAL
[2017-03-05] MEDS ORDERED: NEURONTIN300 MG PO (15:04)
[2017-03-05] MEDS ORDERED: KLONOPIN0.5 MG PO (15:09)
[2017-03-05] MEDS ORDERED: GABAPENTIN600 MG PO (15:10)
[2017-03-05] MEDS ORDERED: Diabetic Tussi118 ML PO (15:13)
[2017-03-05] MEDS ORDERED: NORCO 7.5-3251 EACH PO (15:17)
[2017-03-05] MEDS ORDERED: NOVOLOG10 ML SQ (15:19)
--- NOTE | 2017-03-05 15:22 | NUR ---
MED REC UPDATED BY LIST PROVIDED FROM [facility].
--- NOTE | 2017-03-05 16:50 | NUR ---
NOTIFIED DR. LAGOS OF CRITICAL LAB VALUE.
--- NOTE | 2017-03-05 18:03 | NUR ---
[facility] NOTIFIED OF CONSULT.
--- NOTE | 2017-03-05 20:19 | NUR ---
1943 RESTING IN BED ON LEFT SIDE. HOB ELEVATED. SIDE RAILS UP X'S 2. HEP LOCK INTACT. 02 INTACT. OPENS EYES TO NAME. NONVERBAL AT PRESENT. NO DISTRESS NOTED.
--- NOTE | 2017-03-05 22:16 | NUR ---
INCONTINENT OF MODERATE AMOUNT OF URINE IN BED AND ALSO VOIDED IN BEDPAN AND HAD MODERATE FORMED BM BROWN STOOL. RAQUEL CARE DONE AND PT REPOSITIIONED. CALL LIGHT IN REACH. VERBALIZING MORE AT PRESENT. SKIN FEELS WARM TO TOUCH. TEMP IS 99. NO DISTRESS NOTED.
--- NOTE | 2017-03-05 23:30 | NUR ---
PATIENT SLEEPING IN BED, O2 ON 4L, SHE WILL OPEN HER EYES WHEN YOU SAY HER NAME BUT IS UNABLE TO ANSWER QUESTIONS RIGHT NOW. PATIENT DISPLAYS NO SXS OF DISTRESS. WILL MONITOR
[2017-03-06] VITALS: BP 110/70
--- NOTE | 2017-03-06 01:12 | NUR ---
PATIENT RESTING IN BED, WHEN WALKING IN TO HER ROOM SHE HAD HER OXYGEN OFF AND WAS ASKING FOR SOME WATER, I SAT HER UP IN BED AND GAVE HER SOME WATER. SHE C/O BOTH HIPS HURTING HER, AND SEEMED TO BE SOB. I MEDICATED HER WITH PRN DILAUDID ORDERED FOR PAIN/"AIR HUNGER". SHE HAS NO FURTHER VOICED COMPLAINTS. SHE IS CURRENTLY RESTING IN BED, HOB ELEVATED, AND WATCHING TV. I ENCOURAGE HER TO PRESS THE CALL LIGHT IF SHE NEEDS ANYTHING. WILL MONITOR.
--- NOTE | 2017-03-06 01:12 | NUR ---
24 HOUR CHART CHECK COMPLETE
--- NOTE | 2017-03-06 03:28 | NUR ---
PATIENT SLEEPING, O2 NC IN PLACE ON 4 L, NO SXS OF DISTRESS NOTED, HOB ELEVATED. CALL LIGHT IS IN REACH, WILL MONITOR.
--- NOTE | 2017-03-06 05:07 | NUR ---
PATIENT MEDICATED WITH PRN DILAUDID ORDERED FOR C/O LEFT SHOULDER PAIN RATED A 10
[2017-03-06 05:58] LABS: BASO % 0.3 % (0.0-1.0); EOS # 0.1 10*3/uL (0.0-0.4); EOS % 1.2 % (1.0-4.0); HEMATOCRIT 28.6 % (37.0-47.0); HEMOGLOBIN 8.7 g/dl (12.0-16.0); LYMPH # 2.4 10*3/uL (1.3-4.4); LYMPH % 22.4 % (27.0-41.0); MEAN CELL VOLUME 94.7 fl (81.0-99.0); MEAN CORPUSCULAR HGB 28.8 pg (27.0-31.0); MEAN CORPUSCULAR HGB CONC 30.4 g/dl (33.0-37.0); MEAN PLATELET VOLUME 10.1 fl (9.6-12.3); MONO # 0.8 10*3/uL (0.1-1.0); MONO % 7.5 % (3.0-9.0); NEUT # 7.4 10*3/uL (2.3-7.9); NEUT % 68.2 % (47.0-73.0); PLATELET COUNT AUTOMATED 271 10*3/uL (130-400); RED BLOOD COUNT 3.02 10*6/uL (4.10-5.10); RED CELL DISTRI WIDTH 14.8 % (0-14.5); WHITE BLOOD COUNT 10.8 10*3/uL (4.8-10.8)
--- NOTE | 2017-03-06 06:00 | NUR ---
EARLIER DILAUDID APPEARS EFFECTIVE, PATIENT RESTING COMFORTABLY IN BED. NO SXS OF DISTRESS.
[2017-03-06 06:31] LABS: ALBUMIN 2.3 gm/dl (3.1-4.5); BUN 17 mg/dl (7-24); CHLORIDE 93 mmol/L (98-107); CREATININE 0.97 mg/dL (0.55-1.02); PHOSPHOROUS 4.3 mg/dL (2.5-4.9); POTASSIUM 3.8 mmol/L (3.5-5.1); SGOT/AST 10 IU/L (3-35); SGPT/ALT 11 U/L (12-78); SODIUM 138 mmol/L (136-145); TOTAL PROTEIN 6.4 gm/dL (6.4-8.2)
[2017-03-06 06:32] LABS: ALKALINE PHOSPHATASE 47 U/L (45-117)
[2017-03-06 08:00] VITALS: BP 129/53
[2017-03-06 12:00] VITALS: BP 114/50
[2017-03-06 16:00] VITALS: BP 108/52
[2017-03-06 20:00] VITALS: BP 128/88
--- NOTE | 2017-03-06 20:14 | NUR ---
1930 RESTING IN BED WITH HOB ELEVATED. SIDE RAILS UP X'S 2. ALERT AT PRESENT. NO DISTRESS NOTED. INCONTINENT OF LARGE AMOUNT URINE. RAQUEL CARE DONE AND INCONTINENT PAD CHANGED. REPOSITIONED. 02 INTACT. MOIST PRODUCITVE COUGH NOTED PRODUCTIVE OF GREEN SPUTUM. ORAL TEMP 99.4. WILL CONT TO MONITOR.
--- NOTE | 2017-03-06 21:35 | NUR ---
2114 TEMP 99.8 AXILLARY. SKIN WARM TO TOUCH. TYLENOL 2 PO FOR ELEVATED TEMP. WILL MONITOR. INCONTINENT OF LARGE AMOUNT URINE. COMPLETE BED CAHNGED DONE AND PT REPOSITIONED.
--- NOTE | 2017-03-06 22:09 | NUR ---
RESTING IN BED WITH EYES CLOSED. APPEARS TO BE SLEEPING. 02 INTACT.
--- NOTE | 2017-03-06 23:15 | NUR ---
ASSUMED CARE FOR THIS PT AT THIS TIME. PT RESTING QUIETLY IN BED. NO S/S OF DISTRESS NOTED. CALL LIGHT IN REACH.
[2017-03-07] VITALS: BP 124/82
--- NOTE | 2017-03-07 01:26 | NUR ---
24 HR chart check completed.
[2017-03-07 04:00] VITALS: BP 128/78
[2017-03-07 06:19] LABS: BASO % 0.2 % (0.0-1.0); EOS # 0.2 10*3/uL (0.0-0.4); EOS % 2.4 % (1.0-4.0); HEMATOCRIT 27.6 % (37.0-47.0); HEMOGLOBIN 8.5 g/dl (12.0-16.0); LYMPH # 2.1 10*3/uL (1.3-4.4); LYMPH % 25.1 % (27.0-41.0); MEAN CELL VOLUME 95.2 fl (81.0-99.0); MEAN CORPUSCULAR HGB 29.3 pg (27.0-31.0); MEAN CORPUSCULAR HGB CONC 30.8 g/dl (33.0-37.0); MEAN PLATELET VOLUME 9.7 fl (9.6-12.3); MONO # 0.6 10*3/uL (0.1-1.0); MONO % 7.4 % (3.0-9.0); NEUT # 5.4 10*3/uL (2.3-7.9); NEUT % 64.3 % (47.0-73.0); PLATELET COUNT AUTOMATED 257 10*3/uL (130-400); RED CELL DISTRI WIDTH 14.6 % (0-14.5); WHITE BLOOD COUNT 8.4 10*3/uL (4.8-10.8)
--- NOTE | 2017-03-07 06:21 | NUR ---
PT REQUESTED BEDPAN AT THIS TIME. URINATED ONLY 60CC. PT REFUSING VALERIY HAJA. BLE ELEVATED ON PILLOW.
--- NOTE | 2017-03-07 06:31 | NUR ---
PT ASKING QUESTIONS SUCH HOW SHE GOT HERE, WHAT HAPPENED, WHAT IS WRONG WITH HER, HOW LONG DOES SHE HAVE TO STAY HERE. ALL QUESTIONS ANSWERED. PT CONTENT AND WATCHING TV. SOB NOTED WHEN PT WAS SPEAKING. PT ENCOURAGED TO BREATH IN THROUGH HER NOSE DEEPLY AND OUT HER MOUTH. PT PERFORMED RETURN DEMONSTRATION. CALL LIGHT IN PT'S HAND.
[2017-03-07 06:32] LABS: BUN 15 mg/dl (7-24); CHLORIDE 96 mmol/L (98-107); CREATININE 0.97 mg/dL (0.55-1.02); POTASSIUM 3.6 mmol/L (3.5-5.1); SODIUM 142 mmol/L (136-145)
[2017-03-07 08:00] VITALS: BP 110/62; BP 94/50
--- NOTE | 2017-03-07 09:00 | NUR ---
per chart, patient is a resident of [facility], demand planner will contact [facility] and will see if patient is able to return
[2017-03-07 12:00] VITALS: BP 94/51
--- NOTE | 2017-03-07 13:15 | NUR ---
Patient is from [facility] and can return when stable for discharge.
--- NOTE | 2017-03-07 13:34 | NUR ---
DILAUDID GIVEN FOR C/O GENERALIZED PAIN. WILL MONITOR.
--- NOTE | 2017-03-07 14:03 | NUR ---
Nutritional Support Services Note: Appetite is good for meals, she is eating 50-100% of meals. 1800cal diet as ordered. Encourage po intake of meals and fluids. No other nutrition intervention needed at this time. Will follow. Sugey Erazo
--- NOTE | 2017-03-07 14:35 | NUR ---
dilaudid effective per pt.
--- NOTE | 2017-03-07 14:47 | NUR ---
Arely RN from [facility] stopped and stated she was called in to do a [facility] hospice assessment on this patient, then when she arrived and spoke with patients significant other, they stated they were not interested in hospice at this time.
[2017-03-07 16:00] VITALS: BP 111/58
[2017-03-07 20:00] VITALS: BP 100/48
--- NOTE | 2017-03-07 21:05 | NUR ---
PATIENT ANXIOUS AND AGITATED GIVEN ATIVAN PRN PER ORDER
[2017-03-08] VITALS: BP 102/52
--- NOTE | 2017-03-08 | NUR ---
ASSUMED CARE OF PATIENT. ASSESSMENT COMPLETE. PT STILL RESTLESS AFTER ATIVAN. BED ALARM ON. CALL LIGHT IN REACH. WILL CONTINUE TO MONITOR.
--- NOTE | 2017-03-08 | NUR ---
MEDICATED WITH PRN RESTORIL FOR HELP TO SLEEP
--- NOTE | 2017-03-08 03:35 | NUR ---
PT RECEIVED DILAUDID FOR PAIN RATED 8/10.
--- NOTE | 2017-03-08 03:57 | NUR ---
CALLED AND SPOKE TO DR MEDINA. PT CHOKING WHILE DRINKING, VERY MOIST LUNGS. ASKED HER IF WE COULD ORDER A SPEECH CONSULT AND POSSIBLE SWALLOW EVAL. SHE STATES SHE WILL PUT AN ORDER IN
--- NOTE | 2017-03-08 04:01 | NUR ---
pt aspirated on water at 0400, called dr to make them aware. speech consult ordered and diet changed to nectar thick.
--- NOTE | 2017-03-08 06:57 | NUR ---
PT RECEIVED DILAUDID FOR PAIN.
--- NOTE | 2017-03-08 06:59 | NUR ---
Shift chart check completed.
--- NOTE | 2017-03-08 07:44 | NUR ---
NO CHANGES TO MED REC FROM [facility]
[2017-03-08 08:00] VITALS: BP 127/74
--- NOTE | 2017-03-08 08:27 | NUR ---
SPEECH PATHOLOGY Orders for bedside swallow eval. received and chart review completed. Patient was not able to arouse to initiate assessment. She was sound asleep, in a consistent open mouth position with rapid respirations displayed. Will attempt again at a later time. Thank you for this referral. SILVA VENEGAS MSCCC-INBOUND TELEMARKETER
--- NOTE | 2017-03-08 09:04 | NUR ---
Patient comes from [facility], she can return when medically stable for discharge.
--- NOTE | 2017-03-08 09:43 | NUR ---
MEDICATIONS GIVEN WITH APPLE SAUCE & WAS ABLE TO SWALLOW INDEPENDENTLY WITH NO REMINDERS NEEDED. THIN LIQUIDS DID LEAD TO QUICK COUGHING AFTER CONSUMING VERY MINOR AMOUNT.
[2017-03-08 12:00] VITALS: BP 146/84
--- NOTE | 2017-03-08 13:04 | NUR ---
SPEECH PATHOLOGY Clinical swallowing evaluation completed as per orders due to choking episodes with liquids. Patient was alert but was significantly weak and with respiratory insufficiency. Continuous open mouth position was displayed. Congestion was observed. Patient vocalized but when speaking, was SOB and unintelligible. Oral peripheral exam revealed poor velar movement and mild-moderately impaired strength and ROM with lingual, labial and buccal skills. Volitional cough was weak and congested. Patient was assessed with puree and nectar and honey thick liquids. With pureed consistency, patient swallowed in a timely manner with no residue post swallow. No immediate cough or wet vocal quality was observed but a delayed cough was noted after several bites. Cough was observed with nectar liquid. Delayed cough was observed with honey thick liquid. Patient has multiple risk factors that increase her propensity for aspiration therefore due to this, and due to assessment results, a modified barium swallow is recommended to determine most appropriate diet and r/o aspiration. Until MBS is completed, a pureed diet and honey thick liqids is recommended. Results and eric. were shared with patient, her family members and her nurse and they verbalized understanding. Refer to report in [facility] for further information. Thank you for this referral. SILVA VENEGAS MSCCC-HOME MANAGER
--- NOTE | 2017-03-08 13:41 | NUR ---
Faxed updates to [facility] for review prior to patient returning to [facility]
[2017-03-08 16:00] VITALS: BP 90/71
--- NOTE | 2017-03-08 16:35 | NUR ---
DISCUSSED WITH THE SISTER AT LENGTH ABOUT THE PATIENT ASPIRATING AND WHAT THAT MEANS. SHE SAID WELL SHE ASPIRATES ALL THE TIME BUT IS OK. DISCUSSED THAT IF THE SWALLOWING STUDY SHOWS ASPIRATION THEN THEY WILL WANT TO CONSIDER A PEG TUBE/FEEDING TUBE AND SHE WAS ADAMATE THAT THAT WILL NOT BE ALLOWED. SHE THEN SHE CAN GO BACK TO THE SKILLED NURSING AND SEE IF THE PNEUMONIA CLEARS UP. ATTEMPTED TO AGAIN EXPLAIN THAT IF WE CONTINUE TO FEED HER AND SHE CONTINUES TO ASPIRATE THAT THE PNEUMONIA WILL NOT CLEAR UP AND SHE SAID THAT IT WILL.
--- NOTE | 2017-03-08 17:34 | NUR ---
SISTER IS CONCERNED THAT THE KLONOPIN MAY BE THE CAUSE OF INCREASED DROWSINESS LEADING TO MORE ASPIRATION. PER THE SISTER THE EPISODE OF DROWSINESS HAS INCREASED SINCE THE DOSAE WAS INCREASED AFTER SHE LEFT HERE THE LAST TIME. REQUESTED IT BE HELD & RESTARTED AT ONLY TO SEE IF THAT HELPS.
--- NOTE | 2017-03-08 17:41 | NUR ---
SPOKE WITH DR HIGGINS ABOUT SWALLOWING STUDY & THAT THE FAMILY IS ALREADY SAYING THAT THEY WILL NOT AUTHORIZE A PEG/FEEDING TUBE. HE IS GOING TO ORDER A DR TORRES CONSULT TO CHECK MEDICATIONS
[2017-03-08 20:00] VITALS: BP 104/61
--- NOTE | 2017-03-08 23:00 | NUR ---
PT IS STILL STRUGGLING TO SWALLOW THICKENED LIQUIDS. MIXED IN MORE THICK IT AND SUCTIONED PATIENT FOR A SECOND TIME.
[2017-03-09] VITALS: BP 141/63
--- NOTE | 2017-03-09 03:54 | NUR ---
PT C/O LOWER ABDOMINAL PAIN. MEDICATED WITH PRN DILAUDID
[2017-03-09 04:00] VITALS: BP 138/76
--- NOTE | 2017-03-09 05:44 | NUR ---
PT APPEARS TO BE MORE COMFORTABLE. SLEEPING.
[2017-03-09 07:30] LABS: BASO % 0.2 % (0.0-1.0); EOS # 0.2 10*3/uL (0.0-0.4); EOS % 1.9 % (1.0-4.0); HEMATOCRIT 29.7 % (37.0-47.0); HEMOGLOBIN 8.7 g/dl (12.0-16.0); LYMPH # 2.9 10*3/uL (1.3-4.4); LYMPH % 35.5 % (27.0-41.0); MEAN CELL VOLUME 93.7 fl (81.0-99.0); MEAN CORPUSCULAR HGB 27.4 pg (27.0-31.0); MEAN CORPUSCULAR HGB CONC 29.3 g/dl (33.0-37.0); MEAN PLATELET VOLUME 9.4 fl (9.6-12.3); MONO # 0.7 10*3/uL (0.1-1.0); MONO % 9.2 % (3.0-9.0); NEUT # 4.2 10*3/uL (2.3-7.9); NEUT % 52.5 % (47.0-73.0); PLATELET COUNT AUTOMATED 282 10*3/uL (130-400); RED BLOOD COUNT 3.17 10*6/uL (4.10-5.10); RED CELL DISTRI WIDTH 14.2 % (0-14.5)
[2017-03-09 07:58] LABS: BUN 9 mg/dl (7-24); CHLORIDE 95 mmol/L (98-107); CREATININE 0.92 mg/dL (0.55-1.02); POTASSIUM 3.2 mmol/L (3.5-5.1); SODIUM 140 mmol/L (136-145)
[2017-03-09 08:00] VITALS: BP 150/86
--- NOTE | 2017-03-09 08:11 | NUR ---
DR. HIGGINS NOTIFIED OF MOST RECENT CO2 LEVEL.
--- NOTE | 2017-03-09 08:36 | NUR ---
SPEECH PATHOLOGY Patient was seen for treatment this am. Patient was awake and responsive. She remains weak but with improved respiratory status. She did not display SOB during this visit. No coughing was observed during the session. Patient was given puree and honey thick liquids. She was fed by clinician with implementation of safety strategies such as upright positioning, slow intake and small bites/sips. Patient displayed safe tolerance of items given with timely swallow, no cough or wet vocal quality and no residue. Recommend she remain on present diet of puree and honey thick liquids. Patient would still benefit from MBS to r/o aspiration and determine most appropriate diet. Continued therapy is recommended. SILVA VENEGAS MSCCC-TRANSPORTATION SECURITY SCREENER
--- NOTE | 2017-03-09 09:53 | NUR ---
DR. TORRES NOTIFIED OF CONSULT AND IN TO SEE PATIENT RE: PLAN OF CARE.
--- NOTE | 2017-03-09 10:20 | NUR ---
MEDICATED WITH PRN PO TYLENOL FOR TEMP. 100.7 ORALLY.
[2017-03-09 12:00] VITALS: BP 142/84
[2017-03-09 16:00] VITALS: BP 112/60
[2017-03-09 20:00] VITALS: BP 119/69
--- NOTE | 2017-03-09 20:06 | NUR ---
LAB RESULTS AND ORDERS REVIEWED
--- NOTE | 2017-03-09 20:30 | NUR ---
PT COMPLAIN OF BACK PAIN 12/09. MEDICATED WITH GOOD EFFECT SEE EMAR
[2017-03-10] VITALS: BP 112/60
--- NOTE | 2017-03-10 02:15 | NUR ---
PT COMPLAINS OF BLE PAIN 11/08. MEDICATED WITH GOOD EFFECT. SEE EMAR
[2017-03-10 06:11] LABS: BASO % 0.4 % (0.0-1.0); EOS # 0.3 10*3/uL (0.0-0.4); EOS % 3.6 % (1.0-4.0); HEMATOCRIT 27.3 % (37.0-47.0); HEMOGLOBIN 8.1 g/dl (12.0-16.0); LYMPH # 2.4 10*3/uL (1.3-4.4); LYMPH % 33.7 % (27.0-41.0); MEAN CELL VOLUME 94.5 fl (81.0-99.0); MEAN CORPUSCULAR HGB CONC 29.7 g/dl (33.0-37.0); MEAN PLATELET VOLUME 9.7 fl (9.6-12.3); MONO # 0.6 10*3/uL (0.1-1.0); MONO % 8.6 % (3.0-9.0); NEUT # 3.7 10*3/uL (2.3-7.9); NEUT % 52.7 % (47.0-73.0); PLATELET COUNT AUTOMATED 283 10*3/uL (130-400); RED BLOOD COUNT 2.89 10*6/uL (4.10-5.10); RED CELL DISTRI WIDTH 14.3 % (0-14.5)
[2017-03-10 06:25] LABS: BUN 7 mg/dl (7-24); CHLORIDE 96 mmol/L (98-107); CREATININE 1.04 mg/dL (0.55-1.02); POTASSIUM 2.9 mmol/L (3.5-5.1); SODIUM 139 mmol/L (136-145)
[2017-03-10 08:00] VITALS: BP 115/65
--- NOTE | 2017-03-10 08:16 | NUR ---
HOB ELEVATED, EASY RESPIRATIONS WITH SKIN W/D. REPOSITIONED FOR COMFORT & TO RELIEVE PRESSURE AREAS. PT C/O BILATERAL LEG JOAN, MEDICATED PO ORDERED PER PT REQUEST WITH NORCO 1 TAB. SEE EMAR. BEDALARM FOR PT SAFETY. SEE SHIFT ASSESSMENT.
--- NOTE | 2017-03-10 10:39 | NUR ---
SPEECH PATHOLOGY PT WAS SEEN THIS AM TO F/U REGARDING SWALLOWING FUNCTION, TOLERANCE TO CURRENT DIET, AND TO REINFORCE ASPIRATION PRECAUTIONS. GENERAL COMMENTS: SPOKE WITH RN. SHE NOTED THAT PT DOES NOT LIKE THICKENED LIQUIDS BUT THAT SHE HAD OBSERVED HER COUGHING WITH THIN LIQUIDS. SHE NOTED THAT PT HAS BEEN TOLERATING PILLS IN PUREE W/O DIFFICULTY. UPON ENTRANCE TO ROOM, PT WAS SLEEPING SOUNDLY. SHE WOKE TO VERBAL CUES. PT REQUIRED ONGOING VERBAL CUES TO REMAIN AWAKE AND ALERT. SHE WAS ORIENTED X2 AND ANSWERED QUESTIONS APPROPRIATELY. PT'S VOCAL QUALITY WAS MODERATELY STRAINED AND CONVERSATIONAL PITCH LEVEL WAS VERY HIGH; HOWEVER, COMPREHENSIBILITY REMAINS AT 100% IN A QUIET ENVIRONMENT. SWALLOWING: PT TRIALED THIN LIQUIDS VIA STRAW X3, NECTAR-THICKENED LIQUIDS VIA STRAW X3, AND PUREE X7. FEEDING ASSISTANCE WAS PROVIDED GIVEN PT'S LIMITED UE MOVEMENT. ORAL PHASE: ADEQUATE BOLUS ACCEPTANCE WITH NO ANTERIOR LOSS NOTED. LABIAL SEAL WAS ADEQUATE FOR STRAW DRAW. MANIPULATION AND A-P BOLUS TRANSIT WERE TIMELY. MILD ORAL RESIDUE NOTED WITH PUREE, CLEARED WITH THICKEND LIQUID WASH. PHARYNGEAL PHASE: HLE VISUALIZED. CONGESTIVE COUGHING NOTED FOLLOWING THIRD SIP OF THIN LIQUID AND FOLLOWING THIRD SIP OF NECTAR-THICKENED LIQUID. NO OTHER OVERT S/S OF ASPIRAITON/PENETRATION WERE NOTED. IMPRESSIONS: PT PRESENTS WITH OVERT S/S OF ASPIRATION/PENETRATION FOLLOWING SIPS OF BOTH THIN AND NECTAR-THICKENED LIQUID. IF CONSISTENT WITH PT'S MEDICAL GOALS, RECOMMEND MBS STUDY TO INSTRUMENTALLY EVALUATE OROPHARYNGEAL SWALLOWING FUNCTION. PENDING MBS RESULTS, PT'S LEAST RESTRICTIVE DIET IS CURRENTLY PUREED FOODS WITH NECTAR-THICKENED LIQUIDS. PT'S ASPIRATION RISK FACTORS INCLUDE DEPENDENCE ON OTHERS FOR FEEDING ASSISTANCE AND DX OF COPD AND GERD; ADHERENCE TO PRECAUTIONS BELOW IS RECOMMENDED TO REDUCE THIS RISK. RECOMMENDATIONS: 1. IF C/W PT'S MEDICAL GOALS, COMPLETE MBS STUDY TO FURTHER EVALUATE SWALLOWING FUNCTION 2. RECOMMEND PUREED DIET WITH NECTAR-THICKENED LIQUIDS 3. ASPIRATION PRECAUTIONS: FULLY UPRIGHT, AWAKE, AND ALERT FOR ALL PO; SMALL BITES/SIPS; ORAL CARE AT LEAST BID 4. FEEDING ASSISTANCE PRN POC: WILL COMPLETE MBSS IF ORDERED. OTHERWISE, WILL FOLLOW-UP/TREAT AT THE BEDSIDE TO MANAGE DIET TOLERANCE CLINICALLY. FINDINGS AND RECOMMENDATIONS WERE DISCUSSED WITH RN WHO INDICATED UNDERSTANDING AND AGREEMENT. SHE PLANNED TO SPEAK WITH MEDICAL TEAM REGARDING UTILITY OF MBSS. RICARDO KWON, [facility]-RN WOUND CARE
[2017-03-10 12:00] VITALS: BP 121/66
--- NOTE | 2017-03-10 15:36 | NUR ---
Shift chart check completed.24 HR chart check completed.
[2017-03-10 16:00] VITALS: BP 112/59
--- NOTE | 2017-03-10 17:53 | NUR ---
PT FED. SHE TOOK ABOUT 1/4 OF CHICKEN/M POTATOES/CORN, 100% OF PUDDING AND SIPS OF THICKENED COLA. SHE DOES COUGH AT TIMES BUT HAS GOOD CONTROL OF HER TONGUE AND A STRONG SWALLOW.
[2017-03-10 20:00] VITALS: BP 105/78
--- NOTE | 2017-03-10 20:00 | NUR ---
LAB RESULTS AND ORDERS REVIEWED
[2017-03-11] VITALS: BP 124/63
[2017-03-11 06:27] LABS: BASO % 0.4 % (0.0-1.0); EOS # 0.3 10*3/uL (0.0-0.4); EOS % 3.6 % (1.0-4.0); HEMATOCRIT 27.3 % (37.0-47.0); HEMOGLOBIN 8.1 g/dl (12.0-16.0); LYMPH # 2.4 10*3/uL (1.3-4.4); LYMPH % 34.1 % (27.0-41.0); MEAN CELL VOLUME 94.1 fl (81.0-99.0); MEAN CORPUSCULAR HGB 27.9 pg (27.0-31.0); MEAN CORPUSCULAR HGB CONC 29.7 g/dl (33.0-37.0); MEAN PLATELET VOLUME 9.3 fl (9.6-12.3); MONO # 0.6 10*3/uL (0.1-1.0); MONO % 8.4 % (3.0-9.0); NEUT # 3.8 10*3/uL (2.3-7.9); NEUT % 52.4 % (47.0-73.0); PLATELET COUNT AUTOMATED 282 10*3/uL (130-400); RED CELL DISTRI WIDTH 14.4 % (0-14.5); WHITE BLOOD COUNT 7.2 10*3/uL (4.8-10.8)
[2017-03-11 06:47] LABS: BUN 7 mg/dl (7-24); CHLORIDE 95 mmol/L (98-107); CREATININE 0.98 mg/dL (0.55-1.02); POTASSIUM 3.4 mmol/L (3.5-5.1); SODIUM 139 mmol/L (136-145)
[2017-03-11 08:00] VITALS: BP 108/53
--- NOTE | 2017-03-11 08:23 | NUR ---
DR HIGGINS IN TO SEE PT.
[2017-03-11] MEDS ORDERED: NORCO 7.5-3251 EACH PO (10:10)
[2017-03-11] MEDS ORDERED: DULOXETINE HCL30 MG PO (10:10)
--- NOTE | 2017-03-11 10:52 | NUR ---
Patient being discharged back to [facility], transportation scheduled for 1PM with [facility]. CT, nursing notified.
[2017-03-11 12:00] VITALS: BP 101/62
--- NOTE | 2017-03-11 12:10 | NUR ---
REPORT CALLED TO SH[place] AT [facility].
--- NOTE | 2017-03-11 13:06 | NUR ---
Discharge instructions reviewed with staff at [facility], receptive and verbalizes understanding. Follow-up care arranged. Written instructions in nsg home pkt. Staff informed that pt is high fall risk. NAE BOOTH
== END 2017-03-11 13:06 | disposition other institution (70) | DRG 871 ==
LOC: ED 11:57 → EDHOLD 13:47 → 4E 13:47
PROVIDERS: Internal Medicine; Nurse Practitioner Family; ADMIT Internal Medicine
DX: A41.9 Sepsis, unspecified organism (principal); J69.0 Pneumonitis due to inhalation of food and vomit; N17.0 Acute kidney failure with tubular necrosis; J96.21 Acute and chronic respiratory failure with hypoxia; E43 Unspecified severe protein-calorie malnutrition; G93.41 Metabolic encephalopathy; I50.33 Acute on chronic diastolic (congestive) heart failure; I95.89 Other hypotension; E66.01 Morbid (severe) obesity due to excess calories; J96.22 Acute and chronic respiratory failure with hypercapnia; E87.2 Acidosis; F33.2 Major depressive disorder, recurrent severe without psychotic features; R65.20 Severe sepsis without septic shock; E55.9 Vitamin D deficiency, unspecified; K21.9 Gastro-esophageal reflux disease without esophagitis; E11.9 Type 2 diabetes mellitus without complications; E78.5 Hyperlipidemia, unspecified; G47.01 Insomnia due to medical condition; D64.9 Anemia, unspecified; G25.81 Restless legs syndrome; J45.909 Unspecified asthma, uncomplicated; Z51.5 Encounter for palliative care; Z66 Do not resuscitate; Y95 Nosocomial condition; Z99.81 Dependence on supplemental oxygen; Z88.2 Allergy status to sulfonamides; Z82.3 Family history of stroke; Z82.49 Family history of ischemic heart disease and other diseases of the circulatory system; Z82.5 Family history of asthma and other chronic lower respiratory diseases; Z68.39 Body mass index [BMI] 39.0-39.9, adult; Z86.718 Personal history of other venous thrombosis and embolism; Z86.711 Personal history of pulmonary embolism; Z79.4 Long term (current) use of insulin; Z79.84 Long term (current) use of oral hypoglycemic drugs; Z79.899 Other long term (current) drug therapy

== ENCOUNTER 2020-05-15 21:27 | Inpatient (IN) | payer MEDICARE, OTHER, MEDICAID ==
[~2020-05-15] VITALS: Ht 152.4 cm; Wt 87.3 kg
[~2020-05-15 21:27] MED LIST changes: +DULOXETINE HCL30 MG PO; +Diabetic Tussi118 ML PO; +GABAPENTIN600 MG PO; +NEURONTIN300 MG PO; +NORCO 7.5-3251 EACH PO; +NOVOLOG10 ML SQ
[2020-05-15 21:31] VITALS: BP 119/62
[2020-05-15 23:47] VITALS: BP 78/46
[2020-05-16] VITALS (14 sets, daily range): BP systolic 85–125; BP diastolic 42–85
[2020-05-16 00:05] LABS: BASO % 0.2 % (0.0-1.0); EOS # 0.9 10*3/uL (0.0-0.4); EOS % 5.4 % (1.0-4.0); HEMATOCRIT 27.9 % (37.0-47.0); LYMPH # 2.3 10*3/uL (1.3-4.4); MEAN CELL VOLUME 93.9 fl (81.0-99.0); MEAN CORPUSCULAR HGB 29.3 pg (27.0-31.0); MEAN CORPUSCULAR HGB CONC 31.2 g/dl (33.0-37.0); MEAN PLATELET VOLUME 9.4 fl (9.6-12.3); MONO # 0.9 10*3/uL (0.1-1.0); MONO % 5.4 % (3.0-9.0); NEUT # 12.1 10*3/uL (2.3-7.9); NEUT % 74.2 % (47.0-73.0); PLATELET COUNT AUTOMATED 309 10*3/uL (130-400); RED BLOOD COUNT 2.97 10*6/uL (4.10-5.10); RED CELL DISTRI WIDTH 13.1 % (0-14.5); WHITE BLOOD COUNT 16.3 10*3/uL (4.8-10.8)
[2020-05-16 00:22] LABS: ALBUMIN 2.6 gm/dl (3.1-4.5); ALKALINE PHOSPHATASE 86 U/L (45-117); BUN 28 mg/dl (7-24); CHLORIDE 99 mmol/L (98-107); CREATININE 1.81 mg/dL (0.55-1.02); POTASSIUM 4.7 mmol/L (3.5-5.1); SGOT/AST 8 IU/L (3-35); SGPT/ALT 14 U/L (12-78); SODIUM 134 mmol/L (136-145); TOTAL PROTEIN 6.7 gm/dL (6.4-8.2)
[2020-05-16 00:24] LABS: TROPONIN I < 0.015 ng/ml (<0.045)
[2020-05-16 00:31] LABS: BILIRUBIN Negative (Negative); BLOOD Trace-Lysed (Negative); CLARITY Turbid (Clear); COLOR Yellow (Yellow); GLUCOSE Negative (Negative); KETONE Negative (Negative); LEUKO ESTERASE 3+ (Negative); NITRITE Positive (Negative); PH 5.5 (4.5-8.0); UROBILINOGEN 0.2 E.U./dl (0.0-1.0)
[2020-05-16 00:46] LABS: BACTERIA 3+; EPITHELIAL CELLS 41-50
[2020-05-16 00:47] LABS: WBC 21-30 wbc/hpf (0-5)
[2020-05-16 04:58] LABS: ALBUMIN 2.7 gm/dl (3.1-4.5); CREATININE 1.81 mg/dL (0.55-1.02); POTASSIUM 5.4 mmol/L (3.5-5.1)
[2020-05-16 05:05] LABS: THYROID STIM HORMONE (HS) 2.21 uIU/ml (0.358-4.75)
[2020-05-16] MEDS ORDERED: BUSPIRONE10 MG PO (05:08)
[2020-05-16] MEDS ORDERED: CELEBREX100 MG PO (05:09)
[2020-05-16] MEDS ORDERED: COLACE100 MG PO (05:09)
[2020-05-16] MEDS ORDERED: CYMBALTA60 MG PO (05:13)
[2020-05-16] MEDS ORDERED: FAMOTIDINE40 MG PO (05:14)
[2020-05-16] MEDS ORDERED: DULCOLAX10 M1 R (05:14)
[2020-05-16] MEDS ORDERED: FERROUS SULFAT325 MG PO (05:15)
[2020-05-16] MEDS ORDERED: LASIX40 MG PO (05:15)
[2020-05-16] MEDS ORDERED: PRINIVIL10 MG PO (05:15)
[2020-05-16] MEDS ORDERED: PROVENTIL HFA6.7 GM INH (05:18)
[2020-05-16] MEDS ORDERED: REGLAN5 MG PO (05:18)
[2020-05-16] MEDS ORDERED: NOVOLOG10 ML SC (05:19)
[2020-05-16 06:20] LABS: BASO % 0.1 % (0.0-1.0); EOS # 0.3 10*3/uL (0.0-0.4); EOS % 2.1 % (1.0-4.0); HEMATOCRIT 25.9 % (37.0-47.0); LYMPH # 1.5 10*3/uL (1.3-4.4); LYMPH % 10.4 % (27.0-41.0); MEAN CELL VOLUME 94.9 fl (81.0-99.0); MEAN CORPUSCULAR HGB 29.7 pg (27.0-31.0); MEAN CORPUSCULAR HGB CONC 31.3 g/dl (33.0-37.0); MEAN PLATELET VOLUME 9.9 fl (9.6-12.3); MONO # 0.7 10*3/uL (0.1-1.0); MONO % 5.2 % (3.0-9.0); NEUT # 11.4 10*3/uL (2.3-7.9); NEUT % 81.3 % (47.0-73.0); PLATELET COUNT AUTOMATED 281 10*3/uL (130-400); RED BLOOD COUNT 2.73 10*6/uL (4.10-5.10); RED CELL DISTRI WIDTH 13.2 % (0-14.5)
[2020-05-16 07:34] LABS: VITAMIN D, 25-HYDROXY 16.2 ng/mL (30-100)
[2020-05-16 07:35] LABS: CREATININE 1.86 mg/dL (0.55-1.02)
[2020-05-17] VITALS (18 sets, daily range): BP systolic 92–138; BP diastolic 43–98
[2020-05-17 06:26] LABS: HEMATOCRIT 21.4 % (37.0-47.0); MEAN CELL VOLUME 94.3 fl (81.0-99.0); MEAN CORPUSCULAR HGB CONC 31.8 g/dl (33.0-37.0); MEAN PLATELET VOLUME 9.6 fl (9.6-12.3); NUCLEATED RED BLOOD CELL 0.3 % (0.0-0.0); PLATELET COUNT AUTOMATED 237 10*3/uL (130-400); RED BLOOD COUNT 2.27 10*6/uL (4.10-5.10); RED CELL DISTRI WIDTH 13.7 % (0-14.5); WHITE BLOOD COUNT 9.9 10*3/uL (4.8-10.8)
[2020-05-17 07:22] LABS: CREATININE 1.64 mg/dL (0.55-1.02); POTASSIUM 4.8 mmol/L (3.5-5.1)
[2020-05-17 07:25] LABS: PLATELET SUFFICIENCY NORMAL (NORMAL); TOTAL CELLS COUNTED 100 #CELLS
[2020-05-17 16:24] LABS: BASO % 0.3 % (0.0-1.0); EOS # 0.5 10*3/uL (0.0-0.4); EOS % 5.1 % (1.0-4.0); HEMATOCRIT 23.2 % (37.0-47.0); LYMPH # 1.7 10*3/uL (1.3-4.4); LYMPH % 15.6 % (27.0-41.0); MEAN CELL VOLUME 93.5 fl (81.0-99.0); MEAN CORPUSCULAR HGB 29.8 pg (27.0-31.0); MEAN CORPUSCULAR HGB CONC 31.9 g/dl (33.0-37.0); MEAN PLATELET VOLUME 9.2 fl (9.6-12.3); MONO % 9.2 % (3.0-9.0); NEUT # 7.4 10*3/uL (2.3-7.9); NEUT % 68.8 % (47.0-73.0); NUCLEATED RED BLOOD CELL 0.4 % (0.0-0.0); PLATELET COUNT AUTOMATED 230 10*3/uL (130-400); RED BLOOD COUNT 2.48 10*6/uL (4.10-5.10); RED CELL DISTRI WIDTH 13.6 % (0-14.5); WHITE BLOOD COUNT 10.7 10*3/uL (4.8-10.8)
[2020-05-18] VITALS (9 sets, daily range): BP systolic 93–136; BP diastolic 41–67
[2020-05-18 06:15] LABS: BASO % 0.3 % (0.0-1.0); EOS # 0.6 10*3/uL (0.0-0.4); EOS % 4.9 % (1.0-4.0); HEMATOCRIT 26.9 % (37.0-47.0); LYMPH # 1.2 10*3/uL (1.3-4.4); LYMPH % 10.2 % (27.0-41.0); MEAN CELL VOLUME 93.1 fl (81.0-99.0); MEAN CORPUSCULAR HGB 30.1 pg (27.0-31.0); MEAN CORPUSCULAR HGB CONC 32.3 g/dl (33.0-37.0); MEAN PLATELET VOLUME 9.6 fl (9.6-12.3); MONO % 8.7 % (3.0-9.0); NEUT # 8.7 10*3/uL (2.3-7.9); NEUT % 74.6 % (47.0-73.0); NUCLEATED RED BLOOD CELL 0.1 10*3/uL (0.0-0.0); NUCLEATED RED BLOOD CELL 0.4 % (0.0-0.0); PLATELET COUNT AUTOMATED 241 10*3/uL (130-400); RED BLOOD COUNT 2.89 10*6/uL (4.10-5.10); RED CELL DISTRI WIDTH 14.1 % (0-14.5); WHITE BLOOD COUNT 11.7 10*3/uL (4.8-10.8)
[2020-05-18 06:48] LABS: CREATININE 1.46 mg/dL (0.55-1.02); POTASSIUM 4.3 mmol/L (3.5-5.1)
[2020-05-19] VITALS (13 sets, daily range): BP systolic 95–113; BP diastolic 54–67
[2020-05-19 07:05] LABS: MEAN CELL VOLUME 94.7 fl (81.0-99.0); MEAN CORPUSCULAR HGB 30.3 pg (27.0-31.0); MEAN PLATELET VOLUME 9.3 fl (9.6-12.3); NUCLEATED RED BLOOD CELL 0.4 % (0.0-0.0); PLATELET COUNT AUTOMATED 216 10*3/uL (130-400); RED BLOOD COUNT 2.08 10*6/uL (4.10-5.10); RED CELL DISTRI WIDTH 14.3 % (0-14.5); WHITE BLOOD COUNT 10.5 10*3/uL (4.8-10.8)
[2020-05-19 07:10] LABS: HEMATOCRIT 19.7 % (37.0-47.0)
[2020-05-19 07:24] LABS: POTASSIUM 4.4 mmol/L (3.5-5.1)
[2020-05-19 07:25] LABS: CREATININE 1.5 mg/dL (0.55-1.02)
[2020-05-19 07:53] LABS: PLATELET SUFFICIENCY NORMAL (NORMAL); POLYCHROMASIA SLIGHT; TOTAL CELLS COUNTED 100 #CELLS
[2020-05-19 14:39] LABS: BASO % 0.1 % (0.0-1.0); HEMATOCRIT 24.1 % (37.0-47.0); LYMPH # 0.9 10*3/uL (1.3-4.4); LYMPH % 7.7 % (27.0-41.0); MEAN CELL VOLUME 94.5 fl (81.0-99.0); MEAN CORPUSCULAR HGB 30.6 pg (27.0-31.0); MEAN CORPUSCULAR HGB CONC 32.4 g/dl (33.0-37.0); MEAN PLATELET VOLUME 9.3 fl (9.6-12.3); MONO # 0.8 10*3/uL (0.1-1.0); NEUT # 9.7 10*3/uL (2.3-7.9); NEUT % 83.9 % (47.0-73.0); NUCLEATED RED BLOOD CELL 0.1 10*3/uL (0.0-0.0); NUCLEATED RED BLOOD CELL 0.5 % (0.0-0.0); PLATELET COUNT AUTOMATED 229 10*3/uL (130-400); RED BLOOD COUNT 2.55 10*6/uL (4.10-5.10); RED CELL DISTRI WIDTH 14.1 % (0-14.5); WHITE BLOOD COUNT 11.6 10*3/uL (4.8-10.8)
[2020-05-20] VITALS: BP 120/62
[2020-05-20 03:20] VITALS: BP 116/65
[2020-05-20 06:39] LABS: CREATININE 1.47 mg/dL (0.55-1.02); POTASSIUM 4.2 mmol/L (3.5-5.1)
[2020-05-20 06:42] LABS: BASO % 0.1 % (0.0-1.0); EOS % 0.1 % (1.0-4.0); HEMATOCRIT 24.2 % (37.0-47.0); LYMPH # 1.4 10*3/uL (1.3-4.4); LYMPH % 12.4 % (27.0-41.0); MEAN CELL VOLUME 96.8 fl (81.0-99.0); MEAN CORPUSCULAR HGB 30.8 pg (27.0-31.0); MEAN CORPUSCULAR HGB CONC 31.8 g/dl (33.0-37.0); MEAN PLATELET VOLUME 9.4 fl (9.6-12.3); MONO # 0.9 10*3/uL (0.1-1.0); NEUT # 8.8 10*3/uL (2.3-7.9); NEUT % 77.4 % (47.0-73.0); NUCLEATED RED BLOOD CELL 0.1 10*3/uL (0.0-0.0); NUCLEATED RED BLOOD CELL 0.8 % (0.0-0.0); PLATELET COUNT AUTOMATED 247 10*3/uL (130-400); RED CELL DISTRI WIDTH 14.7 % (0-14.5); WHITE BLOOD COUNT 11.3 10*3/uL (4.8-10.8)
[2020-05-20 08:00] VITALS: BP 108/67
[2020-05-20 12:00] VITALS: BP 109/68
[2020-05-20 16:00] VITALS: BP 117/62
[2020-05-20 20:00] VITALS: BP 121/48
[2020-05-21] VITALS: BP 115/51
[2020-05-21 08:00] VITALS: BP 108/56
[2020-05-21 08:55] LABS: BASO % 0.2 % (0.0-1.0); EOS # 0.3 10*3/uL (0.0-0.4); EOS % 3.3 % (1.0-4.0); HEMATOCRIT 26.4 % (37.0-47.0); LYMPH % 22.3 % (27.0-41.0); MEAN CORPUSCULAR HGB 30.5 pg (27.0-31.0); MEAN CORPUSCULAR HGB CONC 31.8 g/dl (33.0-37.0); MEAN PLATELET VOLUME 9.4 fl (9.6-12.3); MONO # 0.9 10*3/uL (0.1-1.0); MONO % 9.9 % (3.0-9.0); NEUT # 5.5 10*3/uL (2.3-7.9); NEUT % 62.5 % (47.0-73.0); NUCLEATED RED BLOOD CELL 0.1 10*3/uL (0.0-0.0); NUCLEATED RED BLOOD CELL 0.8 % (0.0-0.0); PLATELET COUNT AUTOMATED 270 10*3/uL (130-400); RED BLOOD COUNT 2.75 10*6/uL (4.10-5.10); RED CELL DISTRI WIDTH 14.6 % (0-14.5); WHITE BLOOD COUNT 8.9 10*3/uL (4.8-10.8)
[2020-05-21 12:00] VITALS: BP 115/66
== END 2020-05-21 17:22 | disposition other institution (70) | DRG 480 ==
LOC: ED 21:27 → 5E 05-16 02:24 → EDHOLD 05-16 02:24 → 5E 05-16 07:20
PROVIDERS: Hospitalist; Internal Medicine; Orthopaedic Surgery; Physician Assistant; Social Worker Clinical; Student in an Organized Health Care Education/Training Program; ADMIT Internal Medicine; ATTEND Internal Medicine
PROC: 30233N1 Transfusion of Nonautologous Red Blood Cells into Peripheral Vein, Percutaneous Approach (ICD-10-PCS; 2020-05-17)
PROC: 0QSC04Z Reposition Left Lower Femur with Internal Fixation Device, Open Approach (ICD-10-PCS; principal; 2020-05-18)
PROC: 0QSB04Z Reposition Right Lower Femur with Internal Fixation Device, Open Approach (ICD-10-PCS; 2020-05-18)
PROC: 0HBRXZZ Excision of Toe Nail, External Approach (ICD-10-PCS; 2020-05-21)
PROC: 0HBRXZZ Excision of Toe Nail, External Approach (ICD-10-PCS; 2020-05-21)
PROC: 0HBRXZZ Excision of Toe Nail, External Approach (ICD-10-PCS; 2020-05-21)
PROC: 0HBRXZZ Excision of Toe Nail, External Approach (ICD-10-PCS; 2020-05-21)
PROC: 0HBRXZZ Excision of Toe Nail, External Approach (ICD-10-PCS; 2020-05-21)
PROC: 0HBRXZZ Excision of Toe Nail, External Approach (ICD-10-PCS; 2020-05-21)
PROC: 0HBRXZZ Excision of Toe Nail, External Approach (ICD-10-PCS; 2020-05-21)
PROC: 0HBRXZZ Excision of Toe Nail, External Approach (ICD-10-PCS; 2020-05-21)
PROC: 0HBRXZZ Excision of Toe Nail, External Approach (ICD-10-PCS; 2020-05-21)
PROC: 0HBRXZZ Excision of Toe Nail, External Approach (ICD-10-PCS; 2020-05-21)
DX: S72.464A Nondisplaced supracondylar fracture with intracondylar extension of lower end of right femur, initial encounter for closed fracture (principal); N17.0 Acute kidney failure with tubular necrosis; E43 Unspecified severe protein-calorie malnutrition; S72.462A Displaced supracondylar fracture with intracondylar extension of lower end of left femur, initial encounter for closed fracture; M80.052A Age-related osteoporosis with current pathological fracture, left femur, initial encounter for fracture; E87.2 Acidosis; I50.32 Chronic diastolic (congestive) heart failure; N39.0 Urinary tract infection, site not specified; D62 Acute posthemorrhagic anemia; J96.11 Chronic respiratory failure with hypoxia; M80.051A Age-related osteoporosis with current pathological fracture, right femur, initial encounter for fracture; Z79.01 Long term (current) use of anticoagulants; Z79.4 Long term (current) use of insulin; E66.9 Obesity, unspecified; E11.65 Type 2 diabetes mellitus with hyperglycemia; Z20.822 Contact with and (suspected) exposure to COVID-19; T45.525A Adverse effect of antithrombotic drugs, initial encounter; K21.9 Gastro-esophageal reflux disease without esophagitis; E87.5 Hyperkalemia; E78.5 Hyperlipidemia, unspecified; M17.12 Unilateral primary osteoarthritis, left knee; M17.11 Unilateral primary osteoarthritis, right knee; B35.1 Tinea unguium; M20.42 Other hammer toe(s) (acquired), left foot; Z66 Do not resuscitate; Z51.5 Encounter for palliative care; M20.41 Other hammer toe(s) (acquired), right foot; W06.XXXA Fall from bed, initial encounter; Y92.89 Other specified places as the place of occurrence of the external cause; Y99.8 Other external cause status; Z99.81 Dependence on supplemental oxygen; Z68.37 Body mass index [BMI] 37.0-37.9, adult; Y93.89 Activity, other specified; Z88.2 Allergy status to sulfonamides; Z79.1 Long term (current) use of non-steroidal anti-inflammatories (NSAID); Z79.899 Other long term (current) drug therapy; Z82.5 Family history of asthma and other chronic lower respiratory diseases; Z79.51 Long term (current) use of inhaled steroids